=== PATIENT | male | born 1965 | race Caucasian/White ===

== ENCOUNTER 2017-09-27 17:34 | Inpatient (IN) | payer MEDICARE, MEDICAID ==
[~2017-09-27] VITALS: Ht 182.8 cm; Wt 69.5 kg
--- NOTE | ~2017-09-27 | PR ---
[place], [place] PROGRESS NOTE NAME: [id number] UNIT #: [id number] ROOM: 407 DOCTOR: ESEQUIEL PINEDA MD,CHUCKIE BIRTHDATE: [birth year] DOS: 09/30/2017 SUBJECTIVE: He has been ambulating at this time, reduction in respiratory symptoms of cough, wheezing, shortness of breath, all noted. Plan for discharge home today by the primary care attending. OBJECTIVE: VITAL SIGNS: This morning, patient noted a normal temperature, respiratory rate 20, heart rate of 92, blood pressure 117/68. Pulse oxygen saturation was noted as 97% on room air at rest. HEENT: Examination shows no acute change. NECK: Supple. CARDIOVASCULAR: S1, S2 audible. LUNGS: Without any crackles. Occasional wheezing. ABDOMEN: Flat, soft, nontender, without any acute edema. IMPRESSION: Progressive resolution of acute exacerbation of chronic obstructive pulmonary disease with acute tracheobronchitis was noted with current medical management, plan acute chronic nicotine dependence. Chronic moderate to severe hearing loss. PLAN OF TREATMENT: Continue patient's current therapy, plan of management. The patient at this time without any changes. The patient does get discharged, he could be started on the antibiotics, bronchodilators. Absolute tobacco use was encouraged. Tapering dose of prednisone will be also needed. Outpatient follow up in 2 weeks, was suggested. CHUCKIE IRAHETA MD CM:PNTRANS [id number] CHUCKIE PINEDA MD 09/30/17 1423 interface
--- NOTE | ~2017-09-27 | CON ---
[place], [place] REPORT OF CONSULTATION NAME: [facility]AS [facility] #: [id number] UNIT #: [id number] ROOM: 407 DOCTOR: ESEQUIEL PINEDA MDCHUCKIE BIRTHDATE: [birth year] DOS: 09/29/2017 PULMONARY CONSULTATION, EVALUATION, AND MANAGEMENT CONSULTATION REQUESTED BY: Hospitalist service. REASON FOR CONSULTATION: For assessment of symptoms of shortness of breath. HISTORY OF PRESENT ILLNESS: A 52-year-old white male patient who has been admitted to the hospital. The patient developed retrosternal chest pain ongoing for the past couple of weeks or more. The pain was described to be radiating into the left arm. The patient was also noted symptoms of increased shortness of breath with coughing, chest congestion, and wheezing intermittently along with the current symptoms. Denies symptoms of hemoptysis. The patient has been currently assessed for the cardiac problem because of current chest pain and also assessed for exacerbation of COPD. REVIEW OF SYSTEMS: CONSTITUTIONAL SYMPTOMS: Complain of fatigue without any fever or chills, changes in appetite or any abnormal weight loss. EYES: Denies burning, redness, or tenderness. EARS, NOSE, AND THROAT SYMPTOMS: No sore throat, hoarseness, otalgia, or postnasal drainage. CARDIOVASCULAR SYSTEM: Current atypical angina pain was reported by the patient. The patient was also complaining of some symptoms of dizziness and palpitations. Denies edema or pain of the lower extremities at rest or walking. GASTROINTESTINAL SYMPTOMS: Denies symptoms of dysphagia, nausea, vomiting, diarrhea, abdominal pain, hematemesis, melena, or hematochezia. SKIN: Denies lesions or rashes. GENITOURINARY: Denies dysuria, suprapubic pain, or hematuria. CENTRAL NERVOUS SYSTEM: There were no symptoms of tingling sensations. Remaining systems were reviewed with the patient. They were noted all negative. PAST MEDICAL HISTORY: 1. The patient was known with history of COPD/centrilobular emphysema. 2. Uncomplicated severe persistent bronchial asthma. 3. Chronic deafness, congenital with hearing loss. 4. Essential hypertension. 5. History of alcohol abuse as dependent. 6. Chronic nicotine dependence. 7. Hyperlipidemia. SOCIAL HISTORY: The patient is , does not have any children. He does drink several beers a day intermittently. Tobacco use was noted from the age of [id number] up to 2 packs of cigarettes per day, actively use at this time. Denies any history of illicit drug use. PAST SURGICAL HISTORY: Essentially noted as none. FAMILY HISTORY: The patient's father at [id number] from complication of [place], [place] REPORT OF CONSULTATION NAME: ASHLEY COREAS UNIT #: [id number] ROOM: 407 DOCTOR: CHUCKIE CASTANO MD BIRTHDATE: [birth year] myocardial infarction. Mother at 65-[id number]-tzu in a car accident. MEDICATIONS: Current medications administered noted use of IV Solu-Medrol 40 mg b.i.d., vitamin D, metoprolol tartrate, nicotine replacement patches, Lovenox for DVT prophylaxis, Protonix, DuoNeb q.6 hours, hydroxyzine, Robaxin, IV Levaquin, Librium, and other p.r.n. medications. DRUG ALLERGIES: The patient noted no known allergies. PHYSICAL EXAMINATION: GENERAL: A 52-year-old white male, currently noted awake and alert without any distress. Height of 6 feet, weight 153 pounds, BMI 20.7. VITAL SIGNS: Normal temperature since admission, respiratory rate range between 16 and 20, heart rate 122-85, blood pressure 144/80-150/90, and pulse oxygen saturation on room air was 100% saturation. HEENT: Examination shows head was atraumatic. Eyes nonicterus. NECK: Supple. Chronic partial hearing loss. CARDIOVASCULAR: S1, S2 audible without any added sounds. LUNGS: Examination of the lungs noted general reduction in the breath sounds in the lungs were noted bilaterally with mild expiratory wheezing bilaterally. ABDOMEN: Flat, soft, and nontender. EXTREMITIES: Without edema, clubbing or cyanosis. CENTRAL NERVOUS SYSTEM: Without any gross focal neurologic deficits. VISIBLE SKIN: No lesions or rashes. MUSCULOSKELETAL: Without any obvious deformities. LABORATORY DATA: The PT and PTT of the patient on 09/27/2017 normal on admission. CMP of the patient on 09/27/2017 was noted AST of 39, otherwise normal CMP. Ethyl alcohol level of the patient on admission noted 56. Troponin for the patient 3 sets on 09/27/2017 and 09/28/2017 were all normal. CBC of the patient of 09/28/2017, WBC count 11, hemoglobin 13, hematocrit 40.1, and platelet count normal. The CBC of this morning, WBC count 14.4, hemoglobin 13.9, hematocrit 41.9, and platelet count normal. CMP of this morning, normal BUN and creatinine. Remaining LFTs were normal. The stress test was completed yesterday for the patient assessed by the Cardiology Services with nuclear medicine component was reported as normal left ventricular ejection fraction was noted and no perfusion abnormalities. The test would be considered as normal. RADIOLOGY DATA: Review of the radiology data, chest x-ray of the patient was done one view on 09/27/2017 noted without any acute abnormalities. CTA of the chest was also done on 09/27/2017, no pulmonary embolism. Small area of right middle lobe atelectasis was noted as well. The larger cyst noted in the right upper lobe as well as a small cystic area was noted in the right lower lobe as couple of them. IMPRESSION: 1. The patient has been currently admitted to the hospital noted with acute exacerbation of chronic obstructive pulmonary disease, history of chronic nicotine dependence, smoking up to 2 packs of cigarettes a day. 2. Chronic alcohol dependence, use of the alcohol in the form of beer everyday [place], [place] REPORT OF CONSULTATION NAME: ASHLEY COREAS UNIT #: [id number] ROOM: 407 DOCTOR: CHUCKIE CASTANO MD BIRTHDATE: [birth year] as well. 3. Atypical chest pain for the patient with a normal stress testing as well. 4. Small area of infiltration or subsegmental atelectasis in right middle lobe at this time will be related to the mucus impaction or other reasons. PLAN OF MANAGEMENT: Continue bronchodilators, oxygen supplementation, current dose of corticosteroids, and other treatments. Abstinence of tobacco use recommended. Bronchoscopy could be done in an outpatient depending on further progression of the illness. Usual care. CHUCKIE IRAHETA MD CM:CONSTR:REPORT OF CONSULTATION 1249 09/30/17 0143 interface
[2017-09-27 17:34] VITALS: BP 167/101
[~2017-09-27 17:34] MED LIST: ALBUTEROL0.09 MG/Ac INH; ALTERA NEBULIZ1 EACH MC; ATORVASTATIN CA20 M1 PO; AVPAK AZITHROM250 MG PO; CLARITIN10 MG PO; FLONASE ALLERG9.9 ML NAS; LOPRESSOR25 MG PO; Lopressor25 MG PO; PRAVASTATIN SOD10 MG PO; PREDNICOT20 MG PO; PREDNISONE10 MG PO; PREDNISONE20 M1 PO; PROAIR HFA8.5 GM INH; ROBITUSSIN AC 110 ML PO; SEREVENT D0.046 MG/A IH; SUPER B-50 COM1 EAC1 PO; SYMBICORT1 AE1 INH; TESSALON PERLE100 M1 PO; TUDORZA PRESS400 MCG IH; VITAMIN D1000 IU PO; ZITHROMAX Z PA250 MG PO; ZITHROMAX250 MG PO
[2017-09-27 17:52] LABS: HEMATOCRIT 44.3 % (42.0-52.0); HEMOGLOBIN 14.8 g/dl (14.0-18.0); MEAN CELL VOLUME 92.9 fl (80.0-94.0); MEAN CORPUSCULAR HGB CONC 33.4 g/dl (33.0-37.0); MEAN PLATELET VOLUME 11.2 fl (9.6-12.3); PLATELET COUNT AUTOMATED 144 10*3/uL (130-400); RED BLOOD COUNT 4.77 10*6/uL (4.50-5.90); RED CELL DISTRI WIDTH 13.2 % (0-14.5); WHITE BLOOD COUNT 12.2 10*3/uL (4.8-10.8)
[2017-09-27 18:02] LABS: ACT PARTIAL THROMBO TIME 26.7 SECONDS (20.8-31.5); INTERNATIONAL NORM RATIO 0.9 (2.0-3.5)
[2017-09-27 18:11] LABS: ALBUMIN 3.9 gm/dl (3.1-4.5); ALKALINE PHOSPHATASE 80 U/L (45-117); BUN 5 mg/dl (7-24); CHLORIDE 102 mmol/L (98-107); CREATININE 0.83 mg/dL (0.70-1.30); SGOT/AST 39 IU/L (3-35); SGPT/ALT 45 U/L (12-78); SODIUM 137 mmol/L (136-145); TOTAL PROTEIN 7.2 gm/dL (6.4-8.2)
[2017-09-27 18:12] LABS: TROPONIN I < 0.015 ng/ml (<0.045)
[2017-09-27 18:15] LABS: BASOPHILS 1 % (0-1); TOTAL CELLS COUNTED 100 #CELLS
[2017-09-27 18:16] VITALS: BP 145/99
[2017-09-27 18:16] LABS: PLATELET SUFFICIENCY NORMAL (NORMAL)
[2017-09-27 19:21] VITALS: BP 139/94
[2017-09-27 20:05] VITALS: BP 143/100
[2017-09-27 20:22] VITALS: BP 142/85; BP 150/90
[2017-09-28 00:05] VITALS: BP 142/85
[2017-09-28 00:12] VITALS: BP 142/85
[2017-09-28 05:59] LABS: ALBUMIN 3.2 gm/dl (3.1-4.5); ALKALINE PHOSPHATASE 68 U/L (45-117); BUN 9 mg/dl (7-24); CHLORIDE 108 mmol/L (98-107); CHOLESTEROL 124 mg/dL (<200); CREATININE 0.82 mg/dL (0.70-1.30); HDL CHOLESTEROL 64 mg/dl (40-60); LDL CHOLESTEROL 49 mg/dL (9-159); POTASSIUM 4.3 mmol/L (3.5-5.1); SGOT/AST 29 IU/L (3-35); SGPT/ALT 33 U/L (12-78); SODIUM 142 mmol/L (136-145); TOTAL PROTEIN 5.8 gm/dL (6.4-8.2); TRIGLYCERIDES 55 mg/dl (<150); VLDL CHOLESTEROL 11 mg/dL (6-40)
[2017-09-28 06:49] LABS: HEMATOCRIT 40.1 % (42.0-52.0); MEAN CORPUSCULAR HGB 31.3 pg (27.0-31.0); MEAN CORPUSCULAR HGB CONC 32.4 g/dl (33.0-37.0); MEAN PLATELET VOLUME 12.5 fl (9.6-12.3); PLATELET COUNT AUTOMATED 127 10*3/uL (130-400); RED BLOOD COUNT 4.16 10*6/uL (4.50-5.90); RED CELL DISTRI WIDTH 13.2 % (0-14.5)
[2017-09-28 07:00] LABS: MEAN CELL VOLUME 96.4 fl (80.0-94.0)
[2017-09-28 07:39] LABS: ATYPICAL LYMPHS 2 % (0-0); PLATELET SUFFICIENCY NORMAL (NORMAL); TOTAL CELLS COUNTED 100 #CELLS
[2017-09-28 08:00] VITALS: BP 152/82
[2017-09-28 08:00] LABS: VITAMIN D, 25-HYDROXY 28.3 ng/mL (30-100)
[2017-09-28 12:00] VITALS: BP 142/94
[2017-09-28 16:00] VITALS: BP 136/85
[2017-09-28 20:00] VITALS: BP 155/55
[2017-09-29] VITALS: BP 147/92
[2017-09-29 06:41] LABS: HEMATOCRIT 41.9 % (42.0-52.0); HEMOGLOBIN 13.9 g/dl (14.0-18.0); MEAN CELL VOLUME 93.9 fl (80.0-94.0); MEAN CORPUSCULAR HGB 31.2 pg (27.0-31.0); MEAN CORPUSCULAR HGB CONC 33.2 g/dl (33.0-37.0); MEAN PLATELET VOLUME 12.4 fl (9.6-12.3); PLATELET COUNT AUTOMATED 141 10*3/uL (130-400); RED BLOOD COUNT 4.46 10*6/uL (4.50-5.90); WHITE BLOOD COUNT 14.4 10*3/uL (4.8-10.8)
[2017-09-29 06:59] LABS: ALBUMIN 3.8 gm/dl (3.1-4.5); ALKALINE PHOSPHATASE 91 U/L (45-117); BUN 9 mg/dl (7-24); CHLORIDE 108 mmol/L (98-107); CREATININE 0.67 mg/dL (0.70-1.30); POTASSIUM 4.2 mmol/L (3.5-5.1); SGOT/AST 22 IU/L (3-35); SGPT/ALT 40 U/L (12-78); SODIUM 141 mmol/L (136-145); TOTAL PROTEIN 7.1 gm/dL (6.4-8.2)
[2017-09-29 07:55] LABS: PLATELET SUFFICIENCY NORMAL (NORMAL); TOTAL CELLS COUNTED 100 #CELLS
[2017-09-29 08:00] VITALS: BP 120/90; BP 144/80
[2017-09-29 12:00] VITALS: BP 132/68
[2017-09-29 16:00] VITALS: BP 142/84
[2017-09-29 20:00] VITALS: BP 149/89
[2017-09-30 00:01] VITALS: BP 140/78
[2017-09-30 08:00] VITALS: BP 152/83
[2017-09-30 12:00] VITALS: BP 117/68
[2017-09-30] MEDS ORDERED: LEVAQUIN500 M2 PO (12:41)
[2017-09-30] MEDS ORDERED: PREDNISONE10 MG PO (12:41)
[2017-09-30] MEDS ORDERED: METOPROLOL25 MG PO (14:35)
== END 2017-09-30 15:00 | disposition home or self-care (01) | DRG 871 ==
LOC: ED 17:34 → 4E 18:45 → EDHOLD 18:45 → 4E 19:57
PROVIDERS: Emergency Medicine; Family Medicine Adult Medicine; Internal Medicine
PROC: 4A02XM4 Measurement of Cardiac Total Activity, External Approach (ICD-10-PCS; principal; 2017-09-28)
PROC: 3E033HZ Introduction of Radioactive Substance into Peripheral Vein, Percutaneous Approach (ICD-10-PCS; principal; 2017-09-28)
DX: A41.9 Sepsis, unspecified organism (principal); J18.9 Pneumonia, unspecified organism; I21.9 Acute myocardial infarction, unspecified; J44.0 Chronic obstructive pulmonary disease with (acute) lower respiratory infection; F10.230 Alcohol dependence with withdrawal, uncomplicated; J44.1 Chronic obstructive pulmonary disease with (acute) exacerbation; F11.20 Opioid dependence, uncomplicated; J98.11 Atelectasis; R65.20 Severe sepsis without septic shock; K21.9 Gastro-esophageal reflux disease without esophagitis; M94.0 Chondrocostal junction syndrome [Tietze]; K08.409 Partial loss of teeth, unspecified cause, unspecified class; R00.0 Tachycardia, unspecified; R74.0 Nonspecific elevation of levels of transaminase and lactic acid dehydrogenase [LDH]; J20.9 Acute bronchitis, unspecified; H91.90 Unspecified hearing loss, unspecified ear; F10.229 Alcohol dependence with intoxication, unspecified; F41.9 Anxiety disorder, unspecified; E78.5 Hyperlipidemia, unspecified; I10 Essential (primary) hypertension; Z72.0 Tobacco use; Z71.6 Tobacco abuse counseling; Z82.49 Family history of ischemic heart disease and other diseases of the circulatory system; Z79.899 Other long term (current) drug therapy; Z79.82 Long term (current) use of aspirin

== ENCOUNTER 2017-10-06 19:48 | Inpatient (IN) | payer MEDICARE, MEDICAID ==
[~2017-10-06] VITALS: Ht 185.4 cm; Wt 68.7 kg
--- NOTE | ~2017-10-06 | PR ---
[place], [place] PROGRESS NOTE NAME: ASHLEY COREAS UNIT #: [id number] ROOM: 427 DOCTOR: CHUCKIE CASTANO MD BIRTHDATE: [birth year] DOS: 10/10/2017 SUBJECTIVE: The patient has a bronchoscopy completed yesterday. The patient with reduction of the respiratory symptom noticed, still noted the coughing and wheezing, which has been noted partially reduced. He has not been noted any symptoms of chest pain. The patient noted chronic hard of hearing. Denies abdominal pain. OBJECTIVE: VITAL SIGNS: For the patient which has been recorded showed normal temperature, respiratory rate 20, heart rate of 112-97, blood pressure 153/94-139/82. HEENT: Showed no acute change. NECK: Supple. CARDIOVASCULAR: S1, S2 is audible. LUNGS: Noted without any crackles. Moderate expiratory wheezing was present and noted partially decreased from previously. ABDOMEN: Soft, nontender. Bowel sounds present. EXTREMITIES: The patient noted without any acute edema. LABORATORY DATA: Cultures of the bronchial washing preliminary was noted as normal archana. Final culture results are pending. The Gram stain with few white blood cells with epithelial cells and complex cocci in pairs. CBC this morning: WBC count 15.3. BMP: Glucose mildly elevated as 137, otherwise normal. Remaining BMP normal. IMPRESSION: The patient with ongoing acute severe exacerbation of chronic obstructive pulmonary disease with acute bronchitis, influenza infection, status post bronchoscopy, removal of multiple plugs of the mucus from the major airways. PLAN OF THERAPY: No changes in the plan of treatment at this time will be necessary. Continue current dose of steroids, bronchodilators and other treatment as previously in progress. [place], [place] PROGRESS NOTE NAME: ASHLEY COREAS UNIT #: [id number] ROOM: 427 DOCTOR: CHUCKIE CASTANO MD BIRTHDATE: [birth year] CHUCKIE IRAHETA MD CM:PNTRANS [id number] CHUCKIE PINEDA MD 10/10/17 2314 interface
--- NOTE | ~2017-10-06 | PR ---
[place], [place] PROGRESS NOTE [id number] UNIT #: [id number] ROOM: 427 DOCTOR: ESEQUIEL PINEDA MD,CHUCKIE BIRTHDATE: [birth year] DOS: 10/12/2017 SUBJECTIVE: The patient has been noted with continued reduction and improvement in the respiratory symptoms, gradual reduction of cough, wheezing and shortness of breath. He was continuing Solu-Medrol 40 mg q.8h. Continue antibiotics and bronchodilator treatments. OBJECTIVE: VITAL SIGNS: For the patient which has been recorded showed normal temperature, respiratory rate 18, heart rate 98, blood pressure 137/93. Pulse oxygen saturation of the patient was noted as 97% saturation. HEENT: Examination shows head was atraumatic. Eyes nonicterus. NECK: Supple. CARDIOVASCULAR: S1, S2 is audible. LUNGS: The patient was noted with mild to moderate expiratory wheezing, which was decreasing gradually every day. There were no crackles. ABDOMEN: Soft, nontender. IMPRESSION: 1. The patient with gradual and progressive resolution of the wheezing noted with acute exacerbation of chronic obstructive pulmonary disease and acute influenza infection as well. 2. History of chronic nicotine dependence. PLAN OF MANAGEMENT: Reduce the Solu-Medrol dose 40 mg b.i.d. for the next 24 hours. Possible consideration for home discharge in the morning could be considered on tapering prednisone. Continuation of the plan of management as previously in progress. Usual care. Supportive therapy, plan of management and care. CHUCKIE IRAHETA MD CM:PNTRANS [id number] CHUCKIE PINEDA MD 10/13/17 0422 interface
--- NOTE | ~2017-10-06 | PR ---
[place], [place] PROGRESS NOTE NAME: ASHLEY COREAS [facility] #: [id number] UNIT #: [id number] ROOM: 427 DOCTOR: ESEQUIEL PINEDA MD,CHUCKIE BIRTHDATE: [birth year] DOS: 10/15/2017 SUBJECTIVE: The patient has been noted comfortable at this time without any acute distress, comfortably resting in the bed. Coughing, wheezing other symptoms have been improving. The patient will continue doxycycline. LABORATORY DATA: CT of the chest was done to assess for any occult pneumonia for this patient, does not show evidence of pulmonary embolism. The patient was noted with emphysema bullous in the lungs for this patient with increased previous bullous lesion was noted. There was no acute infiltration noted, abnormal pulmonary nodules. IMPRESSION: 1. 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 The patient was noted with resolving acute exacerbation of chronic obstructive pulmonary disease, acute tracheobronchitis, lymphocyte predominant leukocytosis, rule out any hematologic malignancy. PLAN OF MANAGEMENT: Use of the antibiotic. The patient on doxycycline upon discharge, tapering dose of prednisone. Outpatient assessment would be advised with the hematology service to rule out any lymphocytic pneumonia. Assessment and management has been discussed with the patient and discharge planning with Dr. Marti. The patient was advised to use the home oxygen supplementation as he already has home oxygen. CHUCKIE IRAHETA MD CM:PNTRANS [phone] CHUCKIE PINEDA MD 10/16/17 0042 interface
--- NOTE | ~2017-10-06 | PR ---
[place], [place] PROGRESS NOTE [id number] UNIT #: [id number] ROOM: 427 DOCTOR: ESEQUIEL PINEDA MD,CHUCKIE BIRTHDATE: [birth year] DOS: 10/14/2017 SUBJECTIVE: He has been noted comfortable at this time without any acute distress, sitting on side of the bed. Denies symptoms of chest pain, coughing, wheezing, shortness of breath, all gradually improving. OBJECTIVE: VITAL SIGNS: Normal temperature, respiratory rate 20, heart rate of 120, blood pressure 150/89. The pulse oxygen saturation on 2 liters 93% saturation. HEENT: Examination shows head was atraumatic. Eyes: No icterus. NECK: Supple. CARDIOVASCULAR: S1, S2 audible. LUNGS: Without any crackles. Occasional wheezing. ABDOMEN: Soft, nontender. LABORATORY DATA: Sinus tachycardia. The patient noted chronic leukocytosis noted WBC count 29,000 for the patient with 52% lymphocytes. IMPRESSION: 1. Resolving acute exacerbation of chronic obstructive pulmonary disease, acute tracheobronchitis, leukocytosis, lymphocytosis, rule out any hematologic abnormalities for this patient as well. PLAN OF MANAGEMENT: After discharge, he need to be followed up by the Hematology service for assessment of the CBC for the patient remains abnormal. Tobacco cessation was addressed with the patient. CHUCKIE IRAHETA MD CM:PNTRANS [id number] CHUCKIE PINEDA MD 10/14/17 1237 interface
--- NOTE | ~2017-10-06 | PROC NOTE ---
[place], [place] PROCEDURE NOTE [id number] UN[facility] #: [id number] ROOM: 427 DOCTOR: ESEQUIEL PINEDA MD,CHUCKIE BIRTHDATE: [birth year] DOS: 10/09/2017 BRONCHOSCOPY NOTE PREOPERATIVE DIAGNOSES: Persistent severe coughing and wheezing. The patient with maximal medical therapy. POSTOPERATIVE DIAGNOSES: Removal of multiple plugs and mucus in the endobronchial tree bilaterally. There were no endobronchial obstructive lesions. PROCEDURE DESCRIPTION: Informed consent obtained for the patient. The patient was brought to the OR and placed in supine physician. Conscious sedation administered by the Anesthesia Department. After achieving appropriate sedation, airway introduced into the mouth. Bronchoscope advanced to the airway into laryngeal area. Epiglottis and vocal cords seen. Vocal cords were moving symmetrically with movements, noted yellowish in color. Bronchoscope advanced to the vocal cords into tracheal lumen. The tracheal lumen of the patient noted with moderate amount of thick mucus secretion with some purulent secretion mixture suctioned at renae level. The right upper, right middle, right lower, left upper, left lingular lower lobe bronchi, were all examined. Pimxsigf-nm-fslvn amount of thick plugs and mucus was present in almost all of the subsegments, which were cleared up with normal saline wash, sent for culture. Procedure well tolerated by the patient without complication. Postoperative findings would be discussed with the patient once the patient recovers the effects of acute sedation. No immediate change in the treatment at this time will be needed. CHUCKIE IRAHETA MD CM:PROCNOTE:PROCEDURE NOTE [id number] CHUCKIE PINEDA MD
--- NOTE | ~2017-10-06 | PR ---
[place], [place] PROGRESS NOTE NAME: ASHLEY COREAS [facility] #: [id number] UNIT #: [id number] ROOM: 427 DOCTOR: ESEQUIEL PINEDA MD,CHUCKIE BIRTHDATE: [birth year] DOS: 10/09/2017 SUBJECTIVE: The patient has been planned for bronchoscopy to be done today, noted awake and alert. The coughing was still noted moderate to severe without any sputum expectoration. Partial reduction of symptoms of shortness of breath described. The patient denies symptoms of headache or earache. Denies symptoms of diplopia. General weakness, fatigue were reported. Denies symptoms of nausea, vomiting, and diarrhea. Denies any dysuria, suprapubic pain, hematuria, or flank pain. Denies any edema or pain of the lower extremities. The patient was started on the p.r.n. medications for the cough. Partial reduction of the cough symptomatically noted. OBJECTIVE: VITAL SIGNS: Temperature noted as normal, respiratory rate 20-21, heart rate of 100-112, blood pressure 120/85-130/78. Intake 1500 mL, output 500 mL without Sweeney catheter recorded. Pulse ox saturation on 3 liters nasal cannula 95% saturation. HEENT: Examination shows severe hearing loss, which is noted chronic. Head was atraumatic. NECK: Supple. CARDIOVASCULAR: S1, S2 audible. LUNGS: Noted with moderate decreased breath sounds, expiratory wheezing was noted without any crackles. ABDOMEN: Soft, nontender. Bowel sounds present. EXTREMITIES: Without any acute edema. SKIN: Visible skin, no lesions or rashes. MUSCULOSKELETAL: Without any acute deformities. LABORATORY DATA: BMP today, glucose 139, remaining BMP normal. CBC: WBC count 13.6, hemoglobin 12.1, hematocrit 37.7, platelet count of 148,000 with 50% lymphocytes. IMPRESSION: 1. Persistent lymphocytosis noted mildly with ongoing acute exacerbation of chronic obstructive pulmonary disease, acute tracheobronchitis, history of nicotine dependence as well. 2. Chronic congenital partial hearing loss. 3. The patient with acute influenza B infection. PLAN OF MANAGEMENT: Proceed with bronchoscopy as planned for the patient. No immediate change in treatment will be necessary. Any modification of treatment if necessary will be done after bronchoscopy. Continuation of bronchodilator at same frequency. Continuation of current antibiotics and Solu-Medrol at the same doses as well. Supportive plan of management and therapy. Continuation of treatment of the patient's acute influenza B infection as well. [place], [place] PROGRESS NOTE NAME: ASHLEY COREAS [place] UNIT #: [id number] ROOM: [facility] DOCTOR: CHUCKIE CASTANO MD BIRTHDATE: [birth year] CHUCKIE IRAHETA MD CM:PNTRANS [phone] CHUCKIE PINEDA MD 10/09/17 2253 interface
--- NOTE | ~2017-10-06 | PR ---
[place], [place] PROGRESS NOTE NAME: ASHLEY COREAS UNIT #: [id number] ROOM: 427 DOCTOR: CHUCKIE CASTANO MD BIRTHDATE: [birth year] DOS: 10/11/2017 PULMONARY PROGRESS NOTE SUBJECTIVE: The patient was noted with gradual reduction of the respiratory symptom and reduction of cough, wheezing, and shortness of breath was continued. Denies symptoms of chest pain. He reported some tightness in chest this morning, relieved after the use of the bronchodilators with the nebulizer. OBJECTIVE: VITAL SIGNS: Normal temperature, respiratory rate was recorded as 18, heart rate 118-120, and blood pressure 181/98-135/78 recorded. The pulse oxygen saturation on 2 liters nasal cannula 98% saturation. HEENT: Examination shows no acute change. Head was atraumatic. NECK: Supple. CARDIOVASCULAR: S1, S2 is audible. LUNGS: The patient was noted without any crackles. Juqu-vj-kemrsrxv expiratory wheezing. ABDOMEN: Soft. Nontender. EXTREMITIES: Without any edema. LABORATORY DATA: Culture of the bronchial washing shows a normal archana. CBC: WBC count 18,000. Platelet count was normal. IMPRESSION: 1. The patient has been noted with acute exacerbation of chronic obstructive pulmonary disease with gradual improvement was continued. 2. Wheezing was improving. 3. Leukocytosis. Combination of steroids. 4. Tachycardia. 5. Uncontrolled hypertension, which has been already managed by the primary care physician. PLAN OF MANAGEMENT: No changes in the plan of therapy at this time. Continuation of current plan for the patient as previously. Usual care, other supportive, and plan of management as in progress. Gradual reduction of the corticosteroids. [place], [place] PROGRESS NOTE NAME: ASHLEY COREAS UNIT #: [id number] ROOM: 427 DOCTOR: CHUCKIE CASTANO MD BIRTHDATE: [birth year] CHUCKIE IRAHETA MD CM:PNTRANS [phone] CHUCKIE PINEDA MD 10/12/17 0240 interface
--- NOTE | ~2017-10-06 | CON ---
[place], [place] REPORT OF CONSULTATION NAME: ASHLEY COREAS [facility] #: [id number] UNIT #: [id number] ROOM: 427 DOCTOR: ESEQUIEL PINEDA MDCHUCKIE BIRTHDATE: [birth year] DOS: 10/08/2017 CONSULTATION REQUESTED BY: Hospitalist services. REASON FOR CONSULTATION: Acute exacerbation of COPD assessment. HISTORY OF PRESENT ILLNESS: A 52-year-old white male who has been recently admitted to the hospital treated for acute exacerbation of COPD with improvement in the respiratory status noted, discharged home the patient on 09/30/2017. The patient has been taking tapering dose of prednisone and antibiotics. He came back to the Emergency Room as the patient complaining of increased shortness of breath. The cough has been noted significantly worsened with some sputum expectoration intermittently. He stated that he is not able to expectorate sputum completely with the cough. The coughing has been noted worsening. He was also complaining of tightness in the chest with nonspecific pain in the chest bilaterally. The symptoms of the patient noted improving from previous home medications. The patient has been currently admitted to the hospital for further medical management. At the present time, he has been noted with recurrence of the acute exacerbation of chronic obstructive pulmonary disease as well. The patient was also noted influenza B infection, which has been noted positive for the patient during this admission. REVIEW OF SYSTEMS: CONSTITUTIONAL: Fatigue and tiredness, the patient reported without any symptoms of fever or chills. EYES: Denies any burning, redness, or tenderness. EARS, NOSE AND THROAT SYMPTOMS. No sore throat, hoarseness, otalgia, postnasal drainage or epistaxis. He has been noted chronic hearing loss as well. CARDIOVASCULAR SYSTEM: The patient was noted nonspecific pain, which are described in the chest. Denies any edema or pain of the lower extremities. Denies symptoms of anginal pain. GASTROINTESTINAL: Denies dysphagia, nausea, vomiting, diarrhea, abdominal pain, hematemesis, melena, or hematochezia. Denies any dysphagia. Denies abnormal weight loss history. GENITOURINARY SYMPTOMS: No dysuria, suprapubic pain, hematuria, or urinary retention or incontinence. MUSCULOSKELETAL SYMPTOM: Denies acute joint pain, redness, or tenderness. SKIN: Denies lesions, rashes or ulcers. CENTRAL NERVOUS SYSTEM: No dizziness, headache, diplopia, syncopal episodes. Remaining systems were reviewed of the patient, they were noted all negative. PAST MEDICAL HISTORY, SURGICAL HISTORY, SOCIAL HISTORY, FAMILY HISTORY AND THE PREVIOUS HOME MEDICATION: All reviewed for this patient from consultation of 09/29/2017 and they remains all unchanged. Please refer to that consultation for any reference, which is available in the medical records in the [employer] system. MEDICATIONS: The current medication, which has been administered to the patient was noted use of multivitamin, hydroxyzine, loratadine, vitamin D, metoprolol [place], [place] REPORT OF CONSULTATION NAME: ASHLEY COREAS UNIT #: [id number] ROOM: 427 DOCTOR: CHUCKIE CASTANO MD BIRTHDATE: [birth year] tartrate, nicotine replacement patches, enoxaparin, IV Solu-Medrol 40 mg q.8h., DuoNeb, Dulera, vancomycin, Zosyn and Levaquin. DRUG ALLERGIES: No known drug allergies. PHYSICAL EXAMINATION: GENERAL: A 52-year-old white male patient noted excessive cough without any sputum expectoration without any acute major distress. The patient's height recorded as 6 feet 1 inch, weight of 151 pounds. VITAL SIGNS: For this patient which has been recorded shows temperature was noted as normal, respiratory rate 18-22, heart rate of 98-117 with intermittent sinus tachycardia, blood pressure 135/68 to 147/88. Pulse oxygen saturation of the patient recorded on room air 96 percent saturation on 3 liters cannula was 98% saturation. Intake 2800 mL, output 3800 mL recorded in the last 24 hours. HEENT: Examination shows head was atraumatic. Eyes nonicterus. NECK: Supple. Oral mucosa moist. Chronic hearing loss for the patient noted moderate to severe. CARDIOVASCULAR SYSTEM: S1, S2 is audible. LUNGS: The patient was noted with general reduction of breath sounds in the lungs were noted bilaterally. Expiratory wheezing. ABDOMEN: Soft, flat, nontender, bowel sounds present. EXTREMITIES: The patient was noted without any edema, clubbing, cyanosis. CENTRAL NERVOUS SYSTEM: Cranial nerves were noted intact except the patient's hearing loss. MUSCULOSKELETAL SYMPTOM: Does not show any acute deformities, lesions or rashes. Remaining systems were reviewed with the patient, they were noted all negative. LABORATORY DATA: Influenza A and B, nasal washing antigen noted positive, influenza B infection. CMP for the patient noted BUN 14, creatinine was 0.87. C-reactive protein minimally at 1.46. The WBC count of the patient was noted 15.6, hemoglobin 14.5, hematocrit 43.6, platelet count was normal for this patient, 46% lymphocytes on 10/06/2017. BMP of the patient of 10/07/2017 noted normal BUN and creatinine. CMP of the patient of 10/07/2017 essentially the same. The CBC for the patient that was done 10/08/2017 noted WBC count mildly elevated at 30.3, hemoglobin 12.8, hematocrit 39.1, platelet count 147,000. BMP of the patient noted normal BUN and creatinine, glucose 154. The chest x-ray of the patient, 2-view, which was done for this patient was noted without any evidence of acute pulmonary infiltration. IMPRESSION: 1. The patient who has been currently admitted to the hospital for influenza infection with acute exacerbation of chronic obstructive pulmonary disease, moderate severe cough, which is noted mostly nonproductive, unable to expectorate sputum, nonspecific chest pain related to current exacerbation of chronic obstructive pulmonary disease and acute chronic persistent nicotine dependence as well. 2. Chronic hearing loss of the patient remains stable. [place], [place] REPORT OF CONSULTATION NAME: ASHLEY COREAS UNIT #: [id number] ROOM: [facility] DOCTOR: ESEQUIEL PINEDA [facility] BIRTHDATE: [birth year] PLAN OF MANAGEMENT: Continue Solu-Medrol and bronchodilator. Discontinue all of the current broad-spectrum intravenous antibiotic started for this patient. Continuation of Tamiflu is the only antibiotic despite needed for viral infection. The patient was assessed for bronchoscopy will be done in the morning. The tachycardia, which has been noted with the patient is related to the current underlying exacerbation of COPD, not an uncommon finding. Lymphocytosis noted most likely related to the viral infection as well. Risk and benefits of procedure of the bronchoscopy were discussed with the patient and the patient was agreeable. Procedure will be done in the morning. He was ordered symptomatic management of cough with the use of Robitussin AC 5 mL q.6h. for the management of the cough. CHUCKIE IRAHETA MD CM:CONSTR:REPORT OF CONSULTATION [id number] 10/09/17 0241 interface
--- NOTE | ~2017-10-06 | PR ---
[place], [place] PROGRESS NOTE [id number] UNIT #: [id number] ROOM: 427 DOCTOR: ESEQUIEL PINEDA MD,CHUCKIE BIRTHDATE: [birth year] DOS: 10/13/2017 SUBJECTIVE: The patient has been noted comfortable at this time without any acute distress at this time, resting and sitting on the side of the bed. Coughing, wheezing and other symptoms have been gradually subsiding. OBJECTIVE: VITAL SIGNS: The patient showed normal temperature, respiratory rate 20, heart rate 125-110, blood pressure 143/90-144/81. Pulse oxygen saturation of the patient recorded on 2 liters nasal cannula 97% saturation. HEENT: Examination shows head was atraumatic. Eyes nonicterus. NECK: Supple. CARDIOVASCULAR: S1, S2 is audible. LUNGS: The patient was noted without any crackles, mild expiratory wheezing. ABDOMEN: Soft, nontender. EXTREMITIES: Without any acute edema. IMPRESSION: 1. The patient with a slow and gradual resolution of the acute exacerbation of chronic obstructive pulmonary disease was noted. 2. Leukocytosis was noted for this patient as well with WBC count of 25. BMP was noted with normal BUN and creatinine. Leukocytosis most likely induced by the corticosteroids. There was no evidence of new acute infection at this time known. The culture previously of the bronchial washing noted negative. 3. Tachycardia. PLAN OF MANAGEMENT: Monitor respiratory status of the patient closely. Continuation of bronchodilators, oxygen supplementation and corticosteroids at current dose of 40 mg b.i.d. Other supportive therapy, plan of management and care plan. CHUCKIE IRAHETA MD CM:PNTRANS [id number] CHUCKIE PINEDA MD 10/14/17 0034 interface
[~2017-10-06 19:48] MED LIST changes: +LEVAQUIN500 M2 PO; +METOPROLOL25 MG PO
[2017-10-06 20:13] VITALS: BP 136/89
[2017-10-06 20:51] LABS: HEMATOCRIT 43.6 % (42.0-52.0); HEMOGLOBIN 14.5 g/dl (14.0-18.0); MEAN CELL VOLUME 94.4 fl (80.0-94.0); MEAN CORPUSCULAR HGB 31.4 pg (27.0-31.0); MEAN CORPUSCULAR HGB CONC 33.3 g/dl (33.0-37.0); MEAN PLATELET VOLUME 11.1 fl (9.6-12.3); PLATELET COUNT AUTOMATED 157 10*3/uL (130-400); RED BLOOD COUNT 4.62 10*6/uL (4.50-5.90); RED CELL DISTRI WIDTH 13.4 % (0-14.5); WHITE BLOOD COUNT 15.6 10*3/uL (4.8-10.8)
[2017-10-06 21:06] LABS: ACT PARTIAL THROMBO TIME 24.5 SECONDS (20.8-31.5); INTERNATIONAL NORM RATIO 0.9 (2.0-3.5)
[2017-10-06 21:08] LABS: ALBUMIN 3.9 gm/dl (3.1-4.5); ALKALINE PHOSPHATASE 71 U/L (45-117); BUN 14 mg/dl (7-24); CHLORIDE 107 mmol/L (98-107); CREATININE 0.87 mg/dL (0.70-1.30); LIPASE 285 U/L (73-393); POTASSIUM 3.7 mmol/L (3.5-5.1); SGOT/AST 19 IU/L (3-35); SGPT/ALT 28 U/L (12-78); SODIUM 140 mmol/L (136-145); TOTAL PROTEIN 6.9 gm/dL (6.4-8.2)
[2017-10-06 21:09] LABS: TROPONIN I < 0.015 ng/ml (<0.045)
[2017-10-06 21:16] LABS: ATYPICAL LYMPHS 3 % (0-0); PLATELET SUFFICIENCY NORMAL (NORMAL); TOTAL CELLS COUNTED 100 #CELLS
[2017-10-06 22:00] VITALS: BP 120/80
[2017-10-06 23:00] VITALS: BP 69/45
[2017-10-06 23:30] VITALS: BP 128/86
[2017-10-07] VITALS: BP 101/77; BP 139/95
[2017-10-07 03:39] LABS: HEMATOCRIT 40.4 % (42.0-52.0); MEAN CELL VOLUME 97.3 fl (80.0-94.0); MEAN CORPUSCULAR HGB 31.3 pg (27.0-31.0); MEAN CORPUSCULAR HGB CONC 32.2 g/dl (33.0-37.0); PLATELET COUNT AUTOMATED 122 10*3/uL (130-400); RED BLOOD COUNT 4.15 10*6/uL (4.50-5.90); RED CELL DISTRI WIDTH 13.6 % (0-14.5); WHITE BLOOD COUNT 10.7 10*3/uL (4.8-10.8)
[2017-10-07 03:50] LABS: BUN 13 mg/dl (7-24); CHLORIDE 108 mmol/L (98-107); CREATININE 0.85 mg/dL (0.70-1.30); PHOSPHOROUS 3.9 mg/dL (2.5-4.9); POTASSIUM 3.8 mmol/L (3.5-5.1); SODIUM 143 mmol/L (136-145)
[2017-10-07 04:12] LABS: ATYPICAL LYMPHS 3 % (0-0); TOTAL CELLS COUNTED 100 #CELLS
[2017-10-07 04:13] LABS: PLATELET SUFFICIENCY LOW (NORMAL)
[2017-10-07 08:33] VITALS: BP 129/85
[2017-10-07 12:09] VITALS: BP 125/82
[2017-10-07 16:00] VITALS: BP 134/93
[2017-10-07 20:00] VITALS: BP 135/68
[2017-10-08] VITALS: BP 142/88
[2017-10-08 06:52] LABS: HEMATOCRIT 39.1 % (42.0-52.0); HEMOGLOBIN 12.8 g/dl (14.0-18.0); MEAN CELL VOLUME 96.8 fl (80.0-94.0); MEAN CORPUSCULAR HGB 31.7 pg (27.0-31.0); MEAN CORPUSCULAR HGB CONC 32.7 g/dl (33.0-37.0); MEAN PLATELET VOLUME 11.6 fl (9.6-12.3); PLATELET COUNT AUTOMATED 147 10*3/uL (130-400); RED BLOOD COUNT 4.04 10*6/uL (4.50-5.90); RED CELL DISTRI WIDTH 13.2 % (0-14.5); WHITE BLOOD COUNT 13.3 10*3/uL (4.8-10.8)
[2017-10-08 07:18] LABS: PLATELET SUFFICIENCY NORMAL (NORMAL); TOTAL CELLS COUNTED 100 #CELLS
[2017-10-08 07:34] LABS: CHLORIDE 105 mmol/L (98-107); POTASSIUM 4.3 mmol/L (3.5-5.1); SODIUM 140 mmol/L (136-145)
[2017-10-08 07:59] LABS: BUN 12 mg/dl (7-24)
[2017-10-08 08:00] VITALS: BP 147/88
[2017-10-08 12:00] VITALS: BP 140/86
[2017-10-08 16:00] VITALS: BP 143/95
[2017-10-08 20:00] VITALS: BP 140/88
[2017-10-09] VITALS (8 sets, daily range): BP systolic 128–148; BP diastolic 78–98
[2017-10-09 06:56] LABS: HEMATOCRIT 37.7 % (42.0-52.0); HEMOGLOBIN 12.1 g/dl (14.0-18.0); MEAN CELL VOLUME 97.7 fl (80.0-94.0); MEAN CORPUSCULAR HGB 31.3 pg (27.0-31.0); MEAN CORPUSCULAR HGB CONC 32.1 g/dl (33.0-37.0); MEAN PLATELET VOLUME 11.5 fl (9.6-12.3); PLATELET COUNT AUTOMATED 148 10*3/uL (130-400); RED BLOOD COUNT 3.86 10*6/uL (4.50-5.90); RED CELL DISTRI WIDTH 13.4 % (0-14.5); WHITE BLOOD COUNT 13.6 10*3/uL (4.8-10.8)
[2017-10-09 07:13] LABS: BUN 10 mg/dl (7-24); CHLORIDE 105 mmol/L (98-107); CREATININE 0.71 mg/dL (0.70-1.30); POTASSIUM 4.2 mmol/L (3.5-5.1); SODIUM 140 mmol/L (136-145)
[2017-10-09 07:24] LABS: PLATELET SUFFICIENCY NORMAL (NORMAL); TOTAL CELLS COUNTED 100 #CELLS
[2017-10-10] VITALS: BP 139/82
[2017-10-10 07:56] LABS: HEMATOCRIT 40.7 % (42.0-52.0); HEMOGLOBIN 13.4 g/dl (14.0-18.0); MEAN CELL VOLUME 97.8 fl (80.0-94.0); MEAN CORPUSCULAR HGB 32.2 pg (27.0-31.0); MEAN CORPUSCULAR HGB CONC 32.9 g/dl (33.0-37.0); MEAN PLATELET VOLUME 11.4 fl (9.6-12.3); PLATELET COUNT AUTOMATED 158 10*3/uL (130-400); RED BLOOD COUNT 4.16 10*6/uL (4.50-5.90); RED CELL DISTRI WIDTH 13.4 % (0-14.5); WHITE BLOOD COUNT 15.3 10*3/uL (4.8-10.8)
[2017-10-10 08:00] VITALS: BP 153/94
[2017-10-10 08:10] LABS: BUN 11 mg/dl (7-24); CHLORIDE 104 mmol/L (98-107); POTASSIUM 4.2 mmol/L (3.5-5.1); SODIUM 140 mmol/L (136-145)
[2017-10-10 08:49] LABS: PLATELET SUFFICIENCY NORMAL (NORMAL); TOTAL CELLS COUNTED 100 #CELLS
[2017-10-10 15:06] LABS: ACID FAST SMEAR Negative (.); ACID FAST SPEC PROCESSING Concentration (.)
[2017-10-10 16:00] VITALS: BP 175/95
[2017-10-10 20:00] VITALS: BP 165/92
[2017-10-11] VITALS: BP 135/78
[2017-10-11 05:55] LABS: HEMATOCRIT 38.8 % (42.0-52.0); HEMOGLOBIN 12.4 g/dl (14.0-18.0); MEAN CELL VOLUME 97.5 fl (80.0-94.0); MEAN CORPUSCULAR HGB 31.2 pg (27.0-31.0); MEAN PLATELET VOLUME 11.2 fl (9.6-12.3); PLATELET COUNT AUTOMATED 163 10*3/uL (130-400); RED BLOOD COUNT 3.98 10*6/uL (4.50-5.90); RED CELL DISTRI WIDTH 13.2 % (0-14.5); WHITE BLOOD COUNT 18.1 10*3/uL (4.8-10.8)
[2017-10-11 06:26] LABS: BUN 15 mg/dl (7-24); CHLORIDE 106 mmol/L (98-107); CREATININE 0.75 mg/dL (0.70-1.30); POTASSIUM 4.3 mmol/L (3.5-5.1); SODIUM 142 mmol/L (136-145)
[2017-10-11 06:59] LABS: PLATELET SUFFICIENCY NORMAL (NORMAL); TOTAL CELLS COUNTED 100 #CELLS
[2017-10-11 08:00] VITALS: BP 181/98
[2017-10-11 16:00] VITALS: BP 158/87
[2017-10-11 20:05] VITALS: BP 142/94
[2017-10-12 00:20] VITALS: BP 158/98
[2017-10-12 07:40] LABS: HEMATOCRIT 39.8 % (42.0-52.0); MEAN CELL VOLUME 95.2 fl (80.0-94.0); MEAN CORPUSCULAR HGB 31.1 pg (27.0-31.0); MEAN CORPUSCULAR HGB CONC 32.7 g/dl (33.0-37.0); MEAN PLATELET VOLUME 11.4 fl (9.6-12.3); PLATELET COUNT AUTOMATED 208 10*3/uL (130-400); RED BLOOD COUNT 4.18 10*6/uL (4.50-5.90); RED CELL DISTRI WIDTH 13.3 % (0-14.5); WHITE BLOOD COUNT 24.3 10*3/uL (4.8-10.8)
[2017-10-12 08:00] VITALS: BP 137/93
[2017-10-12 08:01] LABS: BUN 15 mg/dl (7-24); CHLORIDE 104 mmol/L (98-107); CREATININE 0.71 mg/dL (0.70-1.30); SODIUM 140 mmol/L (136-145)
[2017-10-12 08:04] LABS: PLATELET SUFFICIENCY NORMAL (NORMAL); TOTAL CELLS COUNTED 100 #CELLS
[2017-10-12 12:00] VITALS: BP 142/98
[2017-10-12 16:00] VITALS: BP 129/90
[2017-10-12 20:36] VITALS: BP 146/89
[2017-10-13 00:23] VITALS: BP 144/81
[2017-10-13 06:52] LABS: HEMATOCRIT 42.8 % (42.0-52.0); HEMOGLOBIN 13.6 g/dl (14.0-18.0); MEAN CELL VOLUME 97.1 fl (80.0-94.0); MEAN CORPUSCULAR HGB 30.8 pg (27.0-31.0); MEAN CORPUSCULAR HGB CONC 31.8 g/dl (33.0-37.0); MEAN PLATELET VOLUME 10.9 fl (9.6-12.3); PLATELET COUNT AUTOMATED 227 10*3/uL (130-400); RED BLOOD COUNT 4.41 10*6/uL (4.50-5.90); RED CELL DISTRI WIDTH 13.4 % (0-14.5); WHITE BLOOD COUNT 25.7 10*3/uL (4.8-10.8)
[2017-10-13 07:24] LABS: ATYPICAL LYMPHS 6 % (0-0); TOTAL CELLS COUNTED 100 #CELLS
[2017-10-13 07:25] LABS: PLATELET SUFFICIENCY NORMAL (NORMAL)
[2017-10-13 08:00] VITALS: BP 143/90
[2017-10-13 16:00] VITALS: BP 131/82
[2017-10-13 20:00] VITALS: BP 137/96
[2017-10-14] VITALS: BP 150/89
[2017-10-14 06:18] LABS: HEMATOCRIT 39.3 % (42.0-52.0); HEMOGLOBIN 12.9 g/dl (14.0-18.0); MEAN CELL VOLUME 96.1 fl (80.0-94.0); MEAN CORPUSCULAR HGB 31.5 pg (27.0-31.0); MEAN CORPUSCULAR HGB CONC 32.8 g/dl (33.0-37.0); MEAN PLATELET VOLUME 10.7 fl (9.6-12.3); NUCLEATED RED BLOOD CELL 0.1 % (0.0-0.0); PLATELET COUNT AUTOMATED 241 10*3/uL (130-400); RED BLOOD COUNT 4.09 10*6/uL (4.50-5.90); RED CELL DISTRI WIDTH 13.4 % (0-14.5); WHITE BLOOD COUNT 29.4 10*3/uL (4.8-10.8)
[2017-10-14 06:47] LABS: ALBUMIN 3.1 gm/dl (3.1-4.5); BUN 18 mg/dl (7-24); CHLORIDE 101 mmol/L (98-107); POTASSIUM 4.1 mmol/L (3.5-5.1); SODIUM 139 mmol/L (136-145)
[2017-10-14 06:50] LABS: ALKALINE PHOSPHATASE 70 U/L (45-117); CREATININE 0.77 mg/dL (0.70-1.30); SGOT/AST 17 IU/L (3-35); SGPT/ALT 38 U/L (12-78); TOTAL PROTEIN 5.8 gm/dL (6.4-8.2)
[2017-10-14 07:17] LABS: TOTAL CELLS COUNTED 100 #CELLS
[2017-10-14 07:18] LABS: PLATELET SUFFICIENCY NORMAL (NORMAL)
[2017-10-14 08:00] VITALS: BP 128/76
[2017-10-14 12:00] VITALS: BP 126/74
[2017-10-14 16:00] VITALS: BP 144/84
[2017-10-14 20:00] VITALS: BP 153/97
[2017-10-14 21:30] VITALS: BP 130/80
[2017-10-15] VITALS: BP 152/80
[2017-10-15 06:27] LABS: HEMATOCRIT 38.1 % (42.0-52.0); HEMOGLOBIN 12.8 g/dl (14.0-18.0); MEAN CELL VOLUME 95.7 fl (80.0-94.0); MEAN CORPUSCULAR HGB 32.2 pg (27.0-31.0); MEAN CORPUSCULAR HGB CONC 33.6 g/dl (33.0-37.0); PLATELET COUNT AUTOMATED 229 10*3/uL (130-400); RED BLOOD COUNT 3.98 10*6/uL (4.50-5.90); RED CELL DISTRI WIDTH 13.4 % (0-14.5); WHITE BLOOD COUNT 27.9 10*3/uL (4.8-10.8)
[2017-10-15 06:52] LABS: ALBUMIN 3.2 gm/dl (3.1-4.5); BUN 24 mg/dl (7-24); CHLORIDE 101 mmol/L (98-107); CREATININE 0.72 mg/dL (0.70-1.30); POTASSIUM 4.6 mmol/L (3.5-5.1); SGOT/AST 17 IU/L (3-35); SGPT/ALT 41 U/L (12-78); SODIUM 139 mmol/L (136-145); TOTAL PROTEIN 5.9 gm/dL (6.4-8.2)
[2017-10-15 06:55] LABS: ALKALINE PHOSPHATASE 67 U/L (45-117)
[2017-10-15 07:06] LABS: TOTAL CELLS COUNTED 100 #CELLS
[2017-10-15 07:07] LABS: PLATELET SUFFICIENCY NORMAL (NORMAL)
[2017-10-15 08:00] VITALS: BP 114/83
[2017-10-15] MEDS ORDERED: VENTOLIN 02.5 MG/3 M INH (13:56)
[2017-10-15] MEDS ORDERED: FAMOTIDINE20 M1 PO (14:02)
[2017-10-15] MEDS ORDERED: PREDNISONE10 MG PO (14:02)
[2017-10-15] MEDS ORDERED: MUCINEX ER600 MG PO (14:02)
[2017-10-15] MEDS ORDERED: TEMAZEPAM15 M1 PO (14:02)
[2017-10-15] MEDS ORDERED: HYDROXYZINE PAM25 M1 PO (14:02)
[2017-10-15] MEDS ORDERED: DOXYCYCLINE MO100 M1 PO (14:02)
== END 2017-10-15 15:30 | disposition home or self-care (01) | DRG 871 ==
LOC: ED 19:48 → 4E 23:28 → EDHOLD 23:28 → 4E 23:35
PROVIDERS: Emergency Medicine; Family Medicine; Internal Medicine; Internal Medicine Critical Care Medicine; Nurse Practitioner Family; Student in an Organized Health Care Education/Training Program
PROC: 0BC88ZZ Extirpation of Matter from Left Upper Lobe Bronchus, Via Natural or Artificial Opening Endoscopic (ICD-10-PCS; principal; 2017-10-10)
PROC: 0BCB8ZZ Extirpation of Matter from Left Lower Lobe Bronchus, Via Natural or Artificial Opening Endoscopic (ICD-10-PCS; principal; 2017-10-10)
PROC: 0BC68ZZ Extirpation of Matter from Right Lower Lobe Bronchus, Via Natural or Artificial Opening Endoscopic (ICD-10-PCS; principal; 2017-10-10)
PROC: 0BC38ZZ Extirpation of Matter from Right Main Bronchus, Via Natural or Artificial Opening Endoscopic (ICD-10-PCS; principal; 2017-10-10)
PROC: 0BC58ZZ Extirpation of Matter from Right Middle Lobe Bronchus, Via Natural or Artificial Opening Endoscopic (ICD-10-PCS; principal; 2017-10-10)
PROC: 0BC18ZZ Extirpation of Matter from Trachea, Via Natural or Artificial Opening Endoscopic (ICD-10-PCS; principal; 2017-10-10)
PROC: 0BC48ZZ Extirpation of Matter from Right Upper Lobe Bronchus, Via Natural or Artificial Opening Endoscopic (ICD-10-PCS; principal; 2017-10-10)
PROC: 0BC98ZZ Extirpation of Matter from Lingula Bronchus, Via Natural or Artificial Opening Endoscopic (ICD-10-PCS; principal; 2017-10-10)
PROC: 0BC78ZZ Extirpation of Matter from Left Main Bronchus, Via Natural or Artificial Opening Endoscopic (ICD-10-PCS; principal; 2017-10-10)
DX: A41.9 Sepsis, unspecified organism (principal); J96.20 Acute and chronic respiratory failure, unspecified whether with hypoxia or hypercapnia; J10.08 Influenza due to other identified influenza virus with other specified pneumonia; T17.490A Other foreign object in trachea causing asphyxiation, initial encounter; J18.8 Other pneumonia, unspecified organism; T17.590A Other foreign object in bronchus causing asphyxiation, initial encounter; J44.0 Chronic obstructive pulmonary disease with (acute) lower respiratory infection; J44.1 Chronic obstructive pulmonary disease with (acute) exacerbation; R65.20 Severe sepsis without septic shock; K46.9 Unspecified abdominal hernia without obstruction or gangrene; R79.82 Elevated C-reactive protein (CRP); I10 Essential (primary) hypertension; D75.89 Other specified diseases of blood and blood-forming organs; F17.200 Nicotine dependence, unspecified, uncomplicated; E78.5 Hyperlipidemia, unspecified; F41.9 Anxiety disorder, unspecified; F32.9 Major depressive disorder, single episode, unspecified; J20.9 Acute bronchitis, unspecified; X58.XXXA Exposure to other specified factors, initial encounter; Y93.89 Activity, other specified; Z99.81 Dependence on supplemental oxygen; Z78.9 Other specified health status; Z71.6 Tobacco abuse counseling; Q67.6 Pectus excavatum; Y92.89 Other specified places as the place of occurrence of the external cause; Y99.8 Other external cause status

== ENCOUNTER → 2017-10-24 | Outpatient (CLI) | payer OTHER, MEDICAID ==
[~2017-10-24] MED LIST changes: +CEPHALEXIN500 M1 PO; +DOXYCYCLINE MO100 M1 PO; +FAMOTIDINE20 M1 PO; +HYDROXYZINE PAM25 M1 PO; +MUCINEX ER600 MG PO; +SPIRIVA18 MCG PO; +TEMAZEPAM15 M1 PO; +TUDORZA PRESS400 MCG INH; +VENTOLIN 02.5 MG/3 M INH
== END | disposition home or self-care (01) ==
LOC: RESCLI 09:01
DX: J44.9 Chronic obstructive pulmonary disease, unspecified (principal); K21.9 Gastro-esophageal reflux disease without esophagitis; I10 Essential (primary) hypertension; F41.9 Anxiety disorder, unspecified; F32.9 Major depressive disorder, single episode, unspecified; H90.5 Unspecified sensorineural hearing loss; G62.9 Polyneuropathy, unspecified; E44.0 Moderate protein-calorie malnutrition; F51.01 Primary insomnia; F17.210 Nicotine dependence, cigarettes, uncomplicated

== ENCOUNTER 2017-11-01 14:04 | Emergency (ER) | payer OTHER, MEDICAID ==
[~2017-11-01] VITALS: Ht 182.8 cm; Wt 72.1 kg
[~2017-11-01 14:04] MED LIST changes: -CEPHALEXIN500 M1 PO; -SPIRIVA18 MCG PO; -TUDORZA PRESS400 MCG INH
[2017-11-01] MEDS ORDERED: SPIRIVA18 MCG PO (14:09)
[2017-11-01] MEDS ORDERED: TUDORZA PRESS400 MCG INH (14:11)
[2017-11-01] MEDS ORDERED: CEPHALEXIN500 M1 PO (15:27)
== END 2017-11-01 15:34 | disposition home or self-care (01) ==
LOC: ED 14:04
DX: I80.8 Phlebitis and thrombophlebitis of other sites (principal); F17.200 Nicotine dependence, unspecified, uncomplicated; Z79.899 Other long term (current) drug therapy

== ENCOUNTER → 2017-11-06 | Outpatient (CLI) | payer OTHER, MEDICAID ==
[~2017-11-06] MED LIST changes: +CEPHALEXIN500 M1 PO; +SPIRIVA18 MCG PO; +TUDORZA PRESS400 MCG INH
[2017-11-06 11:25] LABS: BASO # 0.1 10*3/uL (0.0-0.1); BASO % 0.6 % (0.0-1.0); EOS # 0.1 10*3/uL (0.0-0.4); EOS % 1.4 % (1.0-4.0); HEMATOCRIT 38.5 % (42.0-52.0); LYMPH # 3.6 10*3/uL (1.3-4.4); LYMPH % 42.4 % (27.0-41.0); MEAN CELL VOLUME 92.3 fl (80.0-94.0); MEAN CORPUSCULAR HGB 31.2 pg (27.0-31.0); MEAN CORPUSCULAR HGB CONC 33.8 g/dl (33.0-37.0); MEAN PLATELET VOLUME 10.7 fl (9.6-12.3); MONO # 0.7 10*3/uL (0.1-1.0); MONO % 8.8 % (3.0-9.0); NEUT # 3.9 10*3/uL (2.3-7.9); NEUT % 46.4 % (47.0-73.0); PLATELET COUNT AUTOMATED 167 10*3/uL (130-400); RED BLOOD COUNT 4.17 10*6/uL (4.50-5.90); WHITE BLOOD COUNT 8.4 10*3/uL (4.8-10.8)
[2017-11-07 07:06] LABS: IMMUNOGLOBULIN G, QNT 478 mg/dL (700-1600); IMMUNOGLOBULIN M, QNT 32 mg/dL (20-172)
[2017-11-07 18:04] LABS: LEUKOCYTE ALK PHOSPHATASE 87 (25-130)
== END | disposition home or self-care (01) ==
LOC: LAB 10:49
PROVIDERS: Internal Medicine Hematology & Oncology
DX: D75.9 Disease of blood and blood-forming organs, unspecified (principal); D72.829 Elevated white blood cell count, unspecified

== ENCOUNTER 2019-10-29 17:10 | Emergency (ER) | payer OTHER, MEDICAID ==
[~2019-10-29] VITALS: Ht 182.8 cm; Wt 63.5 kg
[2019-10-29 18:47] LABS: HEMATOCRIT 50.1 % (42.0-52.0); HEMOGLOBIN 16.7 g/dl (14.0-18.0); MEAN CELL VOLUME 92.6 fl (80.0-94.0); MEAN CORPUSCULAR HGB 30.9 pg (27.0-31.0); MEAN CORPUSCULAR HGB CONC 33.3 g/dl (33.0-37.0); MEAN PLATELET VOLUME 10.4 fl (9.6-12.3); PLATELET COUNT AUTOMATED 172 10*3/uL (130-400); RED BLOOD COUNT 5.41 10*6/uL (4.50-5.90); RED CELL DISTRI WIDTH 13.2 % (0-14.5); WHITE BLOOD COUNT 18.7 10*3/uL (4.8-10.8)
[2019-10-29 18:55] LABS: BILIRUBIN NEGATIVE (NEGATIVE); BLOOD NEGATIVE (NEGATIVE); CLARITY CLEAR (CLEAR); COLOR YELLOW (YELLOW); GLUCOSE NEGATIVE (NEGATIVE); KETONE NEGATIVE (NEGATIVE); LEUKO ESTERASE NEGATIVE (NEGATIVE); NITRITE NEGATIVE (NEGATIVE); SPECIFIC GRAVITY 1.005 (1.005-1.030); UROBILINOGEN 0.2 E.U./dl (0.2-1.0)
[2019-10-29 19:01] LABS: ATYPICAL LYMPHS 2 % (0-0); PLATELET SUFFICIENCY NORMAL (NORMAL); TOTAL CELLS COUNTED 100 #CELLS
[2019-10-29 19:02] LABS: BACTERIA TRACE; EPITHELIAL CELLS 0-2; RBC 0-2 rbc/hpf (0-2); WBC 0-2 wbc/hpf (0-5)
[2019-10-29 19:03] LABS: URINE AMPHETAMINES < 1000 (1000ng/ml); URINE BARBITURATES < 200 (200ng/ml); URINE BENZODIAZEPINES < 200 (200ng/ml); URINE CANNABINOIDS (THC) < 50 (50ng/ml); URINE COCAINE < 300 (300ng/ml); URINE METHADONE < 300 (300ng/ml); URINE OPIATES < 300 (300ng/ml); URINE PHENCYCLIDINE < 25 (25ng/ml)
[2019-10-29 19:05] LABS: ALBUMIN 3.7 gm/dl (3.1-4.5); ALKALINE PHOSPHATASE 111 U/L (45-117); BUN 5 mg/dl (7-24); CHLORIDE 98 mmol/L (98-107); CREATININE 0.66 mg/dL (0.70-1.30); POTASSIUM 3.9 mmol/L (3.5-5.1); SGOT/AST 33 IU/L (3-35); SGPT/ALT 38 U/L (12-78); SODIUM 132 mmol/L (136-145)
== END 2019-10-29 19:20 | disposition left against medical advice (07) ==
LOC: ED 17:10
PROVIDERS: Nurse Practitioner Family
DX: F10.10 Alcohol abuse, uncomplicated (principal); Z53.20 Procedure and treatment not carried out because of patient's decision for unspecified reasons; F32.9 Major depressive disorder, single episode, unspecified; J44.9 Chronic obstructive pulmonary disease, unspecified; I10 Essential (primary) hypertension; F41.9 Anxiety disorder, unspecified; E78.00 Pure hypercholesterolemia, unspecified; F17.200 Nicotine dependence, unspecified, uncomplicated; Z79.899 Other long term (current) drug therapy

== ENCOUNTER 2019-11-02 17:47 | Inpatient (IN) | payer OTHER, MEDICAID ==
[~2019-11-02] VITALS: Ht 182.8 cm; Wt 61.2 kg
[2019-11-02 17:59] VITALS: BP 121/82
--- NOTE | 2019-11-02 18:15 | NUR ---
PT NOW COMPLAINS THAT HE HAS ALSO HAD "CHEST PAINS AND PALPITATIONS" INTERMITTENTLY FOR SOME TIME. PROVIDER MADE AWARE.
[2019-11-02 18:41] LABS: BASO # 0.1 10*3/uL (0.0-0.1); BASO % 0.5 % (0.0-1.0); EOS % 0.3 % (1.0-4.0); HEMATOCRIT 43.2 % (42.0-52.0); HEMOGLOBIN 14.7 g/dl (14.0-18.0); LYMPH # 4.4 10*3/uL (1.3-4.4); LYMPH % 37.9 % (27.0-41.0); MEAN CELL VOLUME 91.9 fl (80.0-94.0); MEAN CORPUSCULAR HGB 31.3 pg (27.0-31.0); MEAN PLATELET VOLUME 11.3 fl (9.6-12.3); MONO # 0.8 10*3/uL (0.1-1.0); MONO % 6.9 % (3.0-9.0); NEUT # 6.3 10*3/uL (2.3-7.9); NEUT % 54.1 % (47.0-73.0); PLATELET COUNT AUTOMATED 86 10*3/uL (130-400); WHITE BLOOD COUNT 11.7 10*3/uL (4.8-10.8)
[2019-11-02 18:41] LABS: BILIRUBIN NEGATIVE (NEGATIVE); BLOOD NEGATIVE (NEGATIVE); CLARITY CLEAR (CLEAR); COLOR YELLOW (YELLOW); GLUCOSE NEGATIVE (NEGATIVE); KETONE 1+ (NEGATIVE); LEUKO ESTERASE NEGATIVE (NEGATIVE); NITRITE NEGATIVE (NEGATIVE); PH 7.5 (5.0-9.0)
[2019-11-02 18:46] LABS: URINE AMPHETAMINES < 1000 (1000ng/ml); URINE BARBITURATES < 200 (200ng/ml); URINE BENZODIAZEPINES < 200 (200ng/ml); URINE CANNABINOIDS (THC) < 50 (50ng/ml); URINE COCAINE < 300 (300ng/ml); URINE METHADONE < 300 (300ng/ml); URINE OPIATES < 300 (300ng/ml)
[2019-11-02 18:47] LABS: BACTERIA TRACE; RBC 0-2 rbc/hpf (0-2)
[2019-11-02 18:51] LABS: URINE PHENCYCLIDINE < 25 (25ng/ml)
[2019-11-02 18:54] LABS: ALBUMIN 3.6 gm/dl (3.1-4.5); ALKALINE PHOSPHATASE 114 U/L (45-117); BUN 9 mg/dl (7-24); CHLORIDE 104 mmol/L (98-107); CREATININE 0.67 mg/dL (0.70-1.30); POTASSIUM 4.1 mmol/L (3.5-5.1); SGOT/AST 149 IU/L (3-35); SGPT/ALT 105 U/L (12-78); SODIUM 138 mmol/L (136-145); TOTAL PROTEIN 6.6 gm/dL (6.4-8.2)
[2019-11-02 18:56] LABS: ETHYL ALCOHOL < 3.0 mg/dl (<3)
--- NOTE | 2019-11-02 19:00 | NUR ---
PATIENT WITH NO COMPLAINTS OR DISTRESS AT THIS TIME. PATIENT REQUESTING NICODERM PATCH. DR. SORENSON MADE AWARE.
[2019-11-02 19:53] VITALS: BP 130/78
--- NOTE | 2019-11-02 20:06 | NUR ---
SPOKE WITH ARNAUD BORRERO IN [facility] AND SHE REQUESTED THE PATIENT BE BROUGHT UP AT 2024. NO CONCERNS NOTED FROM THE PATIENT AT THIS TIME.
[2019-11-02 20:25] VITALS: BP 129/91
--- NOTE | 2019-11-02 20:25 | NUR ---
A 54 YEAR OLD MALE PATIENT, admitted to [facility], under the services of RITU Savage DO with a diagnosis of ETOH WITHDRAWAL. Chief complaint is DRINKS 18 PACK OF BEER A DAY, HAS NOT HAD A DRINK TODAY, WAS FEELING SOME NAUSEA AND TREMORS. Patient arrived via CART WITH RN from ER. Monitor applied. Initial assessment completed. Vital signs taken and recorded. See assessment for past medical history, medications and allergies. Patient and/or family oriented to unit. [id number]. Clothing/patient valuable form completed. ARNAUD MILLAN
--- NOTE | 2019-11-02 20:30 | NUR ---
PATIENT PROVIDED WITH BOX LUNCH AND ROBYN MERRITT PER REQUEST. COMPLAINTS OF ANXIETY AND FEELINGS OF NERVOUSNESS. PATIENT HAS MILD TREMOR TO BOTH HANDS THAT IS VISIBLE AND CAN BE FELT. RN WILL MEDICATE ACCORDING TO CLAUDIA ORDERS
--- NOTE | 2019-11-02 20:37 | NUR ---
PATIENT MEDICATED WITH ATIVAN AND LIBRIUM PER DRS ORDER FOR COMPAINTS OF ANXIETY AND VISIBLE TREMOR TO BILATERAL HANDS AND TONGUE. PATIENT UNABLE TO SIT STILL OR FOCUS THROUGHOUT ASSESSMENT. PATIENT VERY RESTLESS AND IS FIDGETING AROUND THE BED. RN WILL MONITOR FOR EFFECTIVENESS
--- NOTE | 2019-11-02 20:53 | NUR ---
NICOTENE PATCH APPLIED TO PATIENTS RIGHT UPPER ARM AREA PER PATIENT REQUEST. PATIENT COMPLAINS OF FEELINGS OF NERVOUSNESS RELATED TO NOT BEING ABLE TO SMOKE. PATIENT ALSO REQUESTING A SLEEPING PILL AT THIS TIME, STATES HE HAS TROUBLE SLEEPING AND KNOWS HE WILL BE UNABLE TO SLEEP HERE. RN INSTRUCTED PATIENT THAT I WILL BRING SLEEPING PILL TO HIM ONCE HE IS DONE WITH HIS MEAL.
--- NOTE | 2019-11-02 21:15 | NUR ---
PATIENT IS NOW MUCH MORE RELAXED THAN ON ADMISSION, PATIENT IS RESTING WITH EYES CLOSED, APPEARS TO BE SLEEPING, IS SNORING LOUDLY. HEARTRATE REMAINS IN THE 120'S PER CLICKER OPERATOR. BED ALARM WAS APPLIED FOR PATIENT SAFETY. RN WILL CONTINUE TO MONITOR
[2019-11-02] MEDS ORDERED: Ipratropium Brom3 ML INH (21:23)
--- NOTE | 2019-11-02 21:24 | NUR ---
MEDICATION RECONCILLIATION COMPLETED WITH NAZ WALKER AT THIS TIME. [facility] PHARMACIST STATES PATIENT HASNT PICKED UP ANYTHING OTHER THAN HIS INHALERS SINCE AUGUST. PATIENT IS UNAWARE OF THE NAMES OF THE MEDICATIONS HE TAKES AT HOME AND SUGGESTED CALLING MATHIEUE AIDE.
[2019-11-03] VITALS: BP 113/72
[2019-11-03 04:00] VITALS: BP 120/68
[2019-11-03 05:20] LABS: ALBUMIN 2.8 gm/dl (3.1-4.5); ALKALINE PHOSPHATASE 88 U/L (45-117); BUN 12 mg/dl (7-24); CHLORIDE 109 mmol/L (98-107); CREATININE 0.64 mg/dL (0.70-1.30); PHOSPHOROUS 3.7 mg/dL (2.5-4.9); POTASSIUM 3.7 mmol/L (3.5-5.1); SGOT/AST 88 IU/L (3-35); SGPT/ALT 77 U/L (12-78); SODIUM 141 mmol/L (136-145); TOTAL PROTEIN 5.6 gm/dL (6.4-8.2)
[2019-11-03 06:01] LABS: HEMATOCRIT 40.2 % (42.0-52.0); HEMOGLOBIN 13.2 g/dl (14.0-18.0); MEAN CELL VOLUME 92.6 fl (80.0-94.0); MEAN CORPUSCULAR HGB 30.4 pg (27.0-31.0); MEAN CORPUSCULAR HGB CONC 32.8 g/dl (33.0-37.0); MEAN PLATELET VOLUME 12.2 fl (9.6-12.3); PLATELET COUNT AUTOMATED 75 10*3/uL (130-400); RED BLOOD COUNT 4.34 10*6/uL (4.50-5.90); RED CELL DISTRI WIDTH 13.1 % (0-14.5); WHITE BLOOD COUNT 10.5 10*3/uL (4.8-10.8)
[2019-11-03 06:26] LABS: ATYPICAL LYMPHS 10 % (0-0); PLATELET SUFFICIENCY LOW (NORMAL); TOTAL CELLS COUNTED 100 #CELLS
[2019-11-03 06:27] LABS: POLYCHROMASIA SLIGHT
[2019-11-03 08:00] VITALS: BP 122/81
--- NOTE | 2019-11-03 09:30 | NUR ---
PATIENT MEDICATED WITH ATIVAN 1MG IV PER PRN ORDER DUE TO WHEN PATIENT AWAKENS HE IS TREMORING MODERATELY AT THIS TIME. WILL CONTINUE TO MONITOR.
[2019-11-03 12:00] VITALS: BP 106/62
--- NOTE | 2019-11-03 13:50 | NUR ---
PATIENT VERY SHAKY. MEDICATED WITH ATIVAN PER PRN ORDER.
--- NOTE | 2019-11-03 15:45 | NUR ---
PATIENT VERY SHAKY AND SLIGHTLY CONFUSED. MEDICATED WITH VISTARIL PER PRN ORDER.
[2019-11-03 16:00] VITALS: BP 136/91
[2019-11-03 19:22] VITALS: BP 131/89
--- NOTE | 2019-11-03 20:17 | NUR ---
PT. RESTING IN BED, RESTLESS. HEP LOCK IN RA ASYMPT. LUNGS HAVE EXP. WHEEZES BILAT, PULSE OX 97% ON RA. ABDOMEN SOFT ,NODISTENDED AND NORMO. NO PERIPHERAL EDEMA NOTED. RESP. EASY AND REG, NO DISTRESS. VERA JARAMILLO RN
--- NOTE | 2019-11-03 20:30 | NUR ---
PT. GIVEN ROBAXIN AND BENTYL FOR STOMACH AND GENERALIZED ACHES AT 2023. PT HAS TREMORS AND IS RESTLESS. VERA JARAMILLO RN
--- NOTE | 2019-11-03 22:10 | NUR ---
PT. GIVEN ATIVAN AT [address] DAMON NOTIFIED OF PATIENTS AGGITATION, ORDERS RECEIVED. GAIT VERY UNSTEADY. BED EXIT ON AND RAILS UP FOR SAFETY VERA JARAMILLO RN
--- NOTE | 2019-11-03 22:16 | NUR ---
ROBAXIN AND BENTYL MINIMALLY EFFECTIVE PER PT. PT. GETTING MORE AND MORE CONFUSED. ATIVAN GIVEN AT 2140 FOR ANXIETY. PT. INCREASING AGGRESSIVE AND WANTS TO LEAVE. ANSWERS ANSWERS APPROPRIATELY, BUT PUSHING NUMBERS ON PUMP AND HANGING TREATMENT ON PUMP. CONFUSED WITH TREMORS. VERA JARAMILLO RN
--- NOTE | 2019-11-03 22:53 | NUR ---
PT. DROWSY BUT RESTLESS. ATIVAN MILDLY EFFECTIVE. VERA JARAMLILO RN
--- NOTE | 2019-11-03 23:15 | NUR ---
PT. GIVEN ATIVAN ORDERED AT 2234 AND AGAIN AT 2315 FOR DT'S. PT. REMAINS RESTLESS WITH TREMBLES. CONFUSED AT TIMES.
--- NOTE | 2019-11-03 23:42 | NUR ---
PT. GIVEN ATIVAN AT 2340 ORDERED FOR RESTLESSNESS, CHEWING ON EARPHONES. VERY RESTLESS.
[2019-11-04] VITALS: BP 140/81
--- NOTE | 2019-11-04 00:19 | NUR ---
PT. GIVEN ATIVAN ORDERED FOR CONTINUING RESTLESSNESS AND CONFUSION.
--- NOTE | 2019-11-04 00:20 | NUR ---
PT. GIVEN 4MG OF ATIVAN ORDERED FOR RESTLESSNESS AND CONFUSION. VERA JARAMILLO RN
--- NOTE | 2019-11-04 00:54 | NUR ---
PT. GIVEN ATIVAN AT 0055 ORDERED FOR RESTLESSNESS AND DT'S. PREVIOUS DOSES EFFECTIVE FOR SHORT PERIODS (10 MIN) ONLY TO SLOW PATIENT DOWN. PT. REMAINS AWAKE AND ACTIVE. VERA JARAMILLO RN
--- NOTE | 2019-11-04 01:04 | NUR ---
PT. CURRENTLY SMOKING HIS CHEWING GUM AND FLICKING ASHES FROM PULSE OX. VERY CONFUSED. ASKED NURSE FOR JOINT. ATTEMPTS TO REORIENT UNSUCCESSFUL.
--- NOTE | 2019-11-04 02:11 | NUR ---
PT. SLEEPING, ATIVAN EFFECTIVE CURRENTLY.
--- NOTE | 2019-11-04 02:58 | NUR ---
PT. GIVEN ATIVAN AT 0257 ORDERED FOR DT'S AND RESLTESSNESS. VERA JARAMILLO RN
--- NOTE | 2019-11-04 03:06 | NUR ---
PT. ATTEMPTING TO GET OUT OF BED AND PULL OF LEADS AND PULLING AT IV. SOFT WRIST RESTRAINTS ON BILAT FOR PATIENT SAFETY. VERA JARAMILLO RN
--- NOTE | 2019-11-04 03:29 | NUR ---
PT. GIVEN ATIVAN ORDERED AGAIN FOR AGGITATION AND RESTLESSNESS. PT. REMAINS CONFUSED AND UNCOOPRERATIVE.
--- NOTE | 2019-11-04 03:35 | NUR ---
PT. YELLING "ELDRIDGE" AND SWEARING AT STAFF. VERY AGGITATED AT PRESENT.
[2019-11-04 04:00] VITALS: BP 152/97
--- NOTE | 2019-11-04 04:08 | NUR ---
PT. PULLING AT TRAY WITH TOES. PT. REMAINS VERY CONFUSED AND SHAKEY. VERA JARAMILLO RN
--- NOTE | 2019-11-04 04:14 | NUR ---
PT. MUMBLING, RESTRAINTS UNTIED BUT LEFT ON WRISTS. PA AT BEDSIDE. PT. LESS RESTLESS WITH RESTRAINTS OFF AT PRSEENT. WILL CONTINUE TO MONITOR CLOSELY. VERA JARAMILLO RN
--- NOTE | 2019-11-04 04:22 | NUR ---
PT. MORE COOPERATIVE, RESTRAINTS REMOVED, PT. SLEEPING ON SIDE. PA AT BEDSIDE. BED ALARM ON. VERA JARAMILLO RN
--- NOTE | 2019-11-04 04:37 | NUR ---
RESTRAINTS PLACED BACK ON PATIENT DUE TO PATIENT ATTEMPTING TO "GO HOME", GAIT UNSTEADY, THROWING LEGS OVER RAIL AND SMOKING PULSE OX IF IT WERE A CIGARETTE. PT. YELLING AT STAFF, UNABLE TO CALM PATIENT AT PRESENT. VERA JARAMILLO RN
--- NOTE | 2019-11-04 04:58 | NUR ---
PT. GIVEN ATIVAN ORDERED AT 0448 FOR RESTLESSNESS AND UNCOOPERATIVE. VERA JARAMILLO RN
--- NOTE | 2019-11-04 05:09 | NUR ---
PT. SLEEPING, ATIVAN TEMPORARILY EFFECTIVE. PULSE OX 100% ON 3L NC
--- NOTE | 2019-11-04 06:01 | NUR ---
PT. GIVEN ATIVAN AGAIN AT 0600 FOR DT'S AND RESTLESSNESS, PULLING AT RESTRAINTS, ETC. VERA JARAMILLO RN
--- NOTE | 2019-11-04 06:10 | NUR ---
PT. AGAIN TRYING TO SMOKE PULSE OX, REMAINS CONFUSED WITH DT'S. TREMORS MILD. VERA JARAMILLO RN
--- NOTE | 2019-11-04 07:40 | NUR ---
PATIENT VERY RESTLESS AND AGITATED. PULLING AT RESTRAINTS. VERY CONFUSED. MEDICATED WITH ATIVAN 4MG IV PER PRN ORDER. WILL CONTINUE TO MONITOR.
[2019-11-04 08:00] VITALS: BP 150/93
--- NOTE | 2019-11-04 08:14 | NUR ---
PHYSICAL THERAPY Screen received pt admit from home with ETOH withdrawl,sepsis, and pneumonitis. Currently per nsg notes 11/04/19 pt is confused and agitated with intermittent use of restraints. Please consult PT if/as medically appropriate pending progress and functional status as declined, thank you. Emilia Welch PT
[2019-11-04 08:15] LABS: BASO % 0.1 % (0.0-1.0); EOS % 0.1 % (1.0-4.0); HEMATOCRIT 38.3 % (42.0-52.0); HEMOGLOBIN 12.9 g/dl (14.0-18.0); LYMPH # 4.7 10*3/uL (1.3-4.4); LYMPH % 31.4 % (27.0-41.0); MEAN CELL VOLUME 93.6 fl (80.0-94.0); MEAN CORPUSCULAR HGB 31.5 pg (27.0-31.0); MEAN CORPUSCULAR HGB CONC 33.7 g/dl (33.0-37.0); MEAN PLATELET VOLUME 12.4 fl (9.6-12.3); MONO # 0.8 10*3/uL (0.1-1.0); MONO % 5.1 % (3.0-9.0); NEUT # 9.3 10*3/uL (2.3-7.9); PLATELET COUNT AUTOMATED 67 10*3/uL (130-400); RED BLOOD COUNT 4.09 10*6/uL (4.50-5.90); RED CELL DISTRI WIDTH 13.1 % (0-14.5); WHITE BLOOD COUNT 14.8 10*3/uL (4.8-10.8)
[2019-11-04 08:38] LABS: ALBUMIN 3.3 gm/dl (3.1-4.5); ALKALINE PHOSPHATASE 96 U/L (45-117); BUN 7 mg/dl (7-24); CHLORIDE 110 mmol/L (98-107); CREATININE 0.56 mg/dL (0.70-1.30); POTASSIUM 3.4 mmol/L (3.5-5.1); SGOT/AST 48 IU/L (3-35); SGPT/ALT 67 U/L (12-78); SODIUM 139 mmol/L (136-145); TOTAL PROTEIN 6.2 gm/dL (6.4-8.2)
--- NOTE | 2019-11-04 09:20 | NUR ---
PATIENT REMAINS AGITATED AND RESTLESS. ATTEMPTING TO PULL AT IV AND OXYGEN. REORIENTATION INEFFECTIVE. MEDICATED WITH ATIVAN 4MG IV PER PRN ORDER. WILL CONTINUE TO MONITOR.
--- NOTE | 2019-11-04 11:00 | NUR ---
PATIENT REMAINS RESTLESS AND AGITATED. FREQUENTLY PUTTING LEGS OVER SIDERAILS. PULLING AT RESTRAINTS. VERY CONFUSED AT THIS TIME. MEDICATED WITH ATIVAN 4MG IV PER PRN ORDER.
--- NOTE | 2019-11-04 11:26 | NUR ---
PATIENT REMEDICATED WITH ATIVAN PER PRN ORDER DUE TO REMAINS AGITATED AND RESTLESS.
--- NOTE | 2019-11-04 11:57 | NUR ---
PATIENT REMAINS RESTLESS. THROWING LEGS OVER SIDERAILS. PULLING AT IV. MEDICATED WITH ATIVAN 4MG IV PER PRN ORDER.
[2019-11-04 12:00] VITALS: BP 129/75
--- NOTE | 2019-11-04 12:50 | NUR ---
REMAINS AGITATED AND RESTLESS. REMEDICATED WITH ATIVAN 4MG IV PER PRN ORDER.
--- NOTE | 2019-11-04 13:31 | NUR ---
case management unable to visit with patient due to agitation and confusion, case management will follow for any needs
--- NOTE | 2019-11-04 15:50 | NUR ---
Nursing screen received and chart reviewed. Patient admitted for alcohol withdrawal, sepsis, and pneuomonitis. Per chart review, patient is presenting with increased agitation and confusion. If patient has a decline in ADLs, functional transfers, or mobility, please send OT orders when appropriate for an OT eval. Thank you. Donna Camarena, OTR/L
[2019-11-04 16:00] VITALS: BP 141/87
[2019-11-04 20:00] VITALS: BP 120/72
--- NOTE | 2019-11-04 20:01 | NUR ---
PT. GIVEN BENTYL, ROBAXIN, VISTARIL AND ATIVAN AT 3 ORDERED FOR STOMACH ACHES, MUSCLE ACHES, ANXIETY AND RESTLESSNESS AND DT'S.
--- NOTE | 2019-11-04 20:13 | NUR ---
PT. REMAINS VERY CONFUSED AND RESTLESS. HEP LOCK IN LEFT UPPER ARM ASYMPT. LUNGS DIMINISHED BILAT, PULSE OX 99% ON 2L NC. ABDOMEN SOFT, NONDISTENDED AND NORMO. NO PERIPHERAL EDEMA NOTED. PT. IS DISORIENTED, UNABLE TO REORIENT. VERA JARAMILLO RN
--- NOTE | 2019-11-04 20:24 | NUR ---
PT. REMAINS RESTLESS, MOVING SLOWER. ATIVAN, AND VISTARIL INEFFECTIVE. VERA JARAMILLO RN
--- NOTE | 2019-11-04 21:03 | NUR ---
PT. GIVEN ATIVAN ORDERED AGAIN FOR RESTLESSNESS AND AGGITATION, SWEARING AT 1:1 FOR NOT GIVING HIM COFFEE THAT HE SPILLED. ATTEMPTING TO ASSIST PATIENT WITH DRINKING, PT. BECOMING BELIGERENT AT TIMES. RESTRAINTS ON BILAT WRISTS. VERA JARAMILLO RN
[2019-11-05] VITALS: BP 126/66
--- NOTE | 2019-11-05 00:20 | NUR ---
PT. GIVEN ATIVAN AT 0002 ORDERED FOR CONTINUED ANXIETY AND RESTLESSNESS AND DT'S. VERA JARAMILLO RN
--- NOTE | 2019-11-05 00:25 | NUR ---
PT. RESTRAINED BILAT TO PREVENT INJURY TO SELF OR OTHERS.
--- NOTE | 2019-11-05 00:42 | NUR ---
PT. STATING STAFF TOOK PICTURES OF HIM. TOOK OFF HIS CLOTHES AND THREW HIM IN THE HALLWAY AND TOOK PICTURES OF HIM NAKED. ATTEMPTS TO REORIENT PT UNSUCCESSFUL. VERA JARAMILLO RN
--- NOTE | 2019-11-05 00:50 | NUR ---
PT GIVEN ATIVAN ORDERED FOR RESTLESSNESS AND CONFUSION.
--- NOTE | 2019-11-05 01:55 | NUR ---
PT. ATTEMPTED TO HIT NURSE (HESHAM TO) ASSISTING WITH PT. CARE. PT. PLACED BACK IN SOFT WRIST RESTRAINTS BILAT. VERA JARAMILLO RN
--- NOTE | 2019-11-05 01:57 | NUR ---
PT. GIVEN ATIVAN ORDERED FOR COMBATIVENESS AND RESTLESSNESS. VERA JARAMILLO RN
--- NOTE | 2019-11-05 02:18 | NUR ---
PT. CHEWING AND BITING ON OXYGEN. ATTEMPTS TO REORIENT UNSUCCESSFUL. VERA JARAMILLO RN
--- NOTE | 2019-11-05 03:49 | NUR ---
PT. ATTEMPTING TO KICK AT STAFF, CLIMBING OVER THE RAILS AND HANGING BY ARMS/WRIST RESTRAINTS. ONE LEG RESTRAINED TO KEEP PT FROM HURTING HIMSELF. PT. YELLING OUT FOR ANMOL AND FREDRICK AND VISIBLY SOB. ATIVAN GIVEN ORDERED FOR CONFUSION. VERA JARAMILLO RN
[2019-11-05 04:00] VITALS: BP 151/93
--- NOTE | 2019-11-05 04:04 | NUR ---
PT. ATTEMPTING TO CHEW RESTRAINTS. YELLING OUT AND PULLING OFF MONITOR AND DIAPER. UNABLE TO REORIENT. VERA JARAMILLO RN
--- NOTE | 2019-11-05 04:10 | NUR ---
PT.S HR 164, PT. VERY ANXIOUS AND COMBATIVE. GIVEN MORE ATIVAN ORDERED. VERA JARAMILLO RN
--- NOTE | 2019-11-05 05:17 | NUR ---
PT. GIVEN ATIVAN ORDERED FOR RESTLESSNESS, CONFUSION AND YELLING OUT. WILL CONTINUE TO MONITOR. VERA JARAMILLO RN
--- NOTE | 2019-11-05 05:46 | NUR ---
PT. GIVEN ATIVAN ORDERED FOR RESTLESSNESS, THROWING LEGS OVER RAIL AND PULLING AT RESTRAINTS YELLING. VERA JARAMILLO RN
--- NOTE | 2019-11-05 05:47 | NUR ---
ALL DOSES OF ATIVAN ARE MINIMALLY EFFECTIVE FOR SHORT PERIODS.
[2019-11-05 05:55] LABS: ALBUMIN 3.4 gm/dl (3.1-4.5); ALKALINE PHOSPHATASE 81 U/L (45-117); BUN 9 mg/dl (7-24); CHLORIDE 110 mmol/L (98-107); CREATININE 0.79 mg/dL (0.70-1.30); POTASSIUM 3.9 mmol/L (3.5-5.1); SGOT/AST 56 IU/L (3-35); SGPT/ALT 81 U/L (12-78); SODIUM 141 mmol/L (136-145); TOTAL PROTEIN 6.2 gm/dL (6.4-8.2)
[2019-11-05 06:07] LABS: BASO % 0.1 % (0.0-1.0); HEMATOCRIT 40.2 % (42.0-52.0); HEMOGLOBIN 13.2 g/dl (14.0-18.0); LYMPH # 4.7 10*3/uL (1.3-4.4); LYMPH % 28.7 % (27.0-41.0); MEAN CELL VOLUME 94.1 fl (80.0-94.0); MEAN CORPUSCULAR HGB 30.9 pg (27.0-31.0); MEAN CORPUSCULAR HGB CONC 32.8 g/dl (33.0-37.0); MEAN PLATELET VOLUME 12.5 fl (9.6-12.3); MONO # 0.5 10*3/uL (0.1-1.0); NEUT % 67.6 % (47.0-73.0); PLATELET COUNT AUTOMATED 76 10*3/uL (130-400); RED BLOOD COUNT 4.27 10*6/uL (4.50-5.90); RED CELL DISTRI WIDTH 13.3 % (0-14.5); WHITE BLOOD COUNT 16.3 10*3/uL (4.8-10.8)
--- NOTE | 2019-11-05 06:30 | NUR ---
PT. HAS NOT SLEPT AT ALL THIS PAST NIGHT. REMAINS ANXIOUS AND CONFUSED. VERA JARAMILLO RN
[2019-11-05 08:00] VITALS: BP 110/66
[2019-11-05 12:00] VITALS: BP 116/74
[2019-11-05 16:00] VITALS: BP 123/76
[2019-11-05 20:00] VITALS: BP 111/68
--- NOTE | 2019-11-05 20:05 | NUR ---
PT. RESTING IN BED, SLEEPING. AROUSES WITH ASSESSMENT THEN FALLS BACK TO SLEEP. HEP LOCK IN LEFT UPPER ARM ASYMP. LUNGS DIMINISHED BILAT, PULSE OX 97% ON 2L NC. ABDOMEN SOFT, NONDISTENDED AND NORMO. NO PERIPHERAL EDEMA NOTED. RESP. EASY AND REG ,NO DISTRESS. VERA JARAMILLO, RN
--- NOTE | 2019-11-05 23:35 | NUR ---
PATIENT WANTED SOMETHING TO HELP HIM SLEEP AND FELT ACHEY VISTARIL GIVEN TO HELP HIM RELAX AND ROBAXIN FOR ACHEY SEE MAR. ALSO NICOTROL INHALER CARTRIDGE CHANGED. HARSH MOIST COUGH NOTED. O2 2L IN USE. LUNG SOUNDS CLEAR ON RIGHT SIDE WITH WHEEZING ON LEFT SIDE. PULSE OX 97%.
[2019-11-06] VITALS: BP 125/72
--- NOTE | 2019-11-06 00:05 | NUR ---
PATIENT SLEEPING WITH SNORING RESP. ROBAXIN AND VISTARIL EFFECTIVE.
--- NOTE | 2019-11-06 00:36 | NUR ---
24 HR chart check completed.
--- NOTE | 2019-11-06 02:42 | NUR ---
SLEEPING. NO DISTRESS
[2019-11-06 04:00] VITALS: BP 112/74
[2019-11-06 06:18] LABS: ALKALINE PHOSPHATASE 97 U/L (45-117); BUN 11 mg/dl (7-24); CHLORIDE 107 mmol/L (98-107); CREATININE 0.63 mg/dL (0.70-1.30); POTASSIUM 3.9 mmol/L (3.5-5.1); SGOT/AST 46 IU/L (3-35); SGPT/ALT 81 U/L (12-78); SODIUM 141 mmol/L (136-145); TOTAL PROTEIN 5.5 gm/dL (6.4-8.2)
[2019-11-06 06:19] LABS: BASO % 0.1 % (0.0-1.0); EOS % 0.1 % (1.0-4.0); HEMATOCRIT 40.4 % (42.0-52.0); HEMOGLOBIN 13.1 g/dl (14.0-18.0); LYMPH # 4.2 10*3/uL (1.3-4.4); MEAN CELL VOLUME 95.3 fl (80.0-94.0); MEAN CORPUSCULAR HGB 30.9 pg (27.0-31.0); MEAN CORPUSCULAR HGB CONC 32.4 g/dl (33.0-37.0); MEAN PLATELET VOLUME 12.8 fl (9.6-12.3); MONO # 0.7 10*3/uL (0.1-1.0); NEUT # 9.5 10*3/uL (2.3-7.9); NEUT % 65.2 % (47.0-73.0); PLATELET COUNT AUTOMATED 85 10*3/uL (130-400); RED BLOOD COUNT 4.24 10*6/uL (4.50-5.90); RED CELL DISTRI WIDTH 13.4 % (0-14.5); WHITE BLOOD COUNT 14.5 10*3/uL (4.8-10.8)
[2019-11-06 08:00] VITALS: BP 103/64
[2019-11-06 11:10] VITALS: BP 116/83
[2019-11-06] MEDS ORDERED: LEVAQUIN750 M1 PO (12:11)
[2019-11-06] MEDS ORDERED: PREDNISONE10 MG PO (12:11)
--- NOTE | 2019-11-06 12:23 | NUR ---
PT AWAKE AND ALERT AT THIS TIME. ASSISTED OUT OF BED IN TO RECLINER CHAIR WITH ASSIST. LINENS CHANGED.
--- NOTE | 2019-11-06 13:00 | NUR ---
AMBULATED PT AROUND NURSES STATION.
--- NOTE | 2019-11-06 13:30 | NUR ---
Discharge instructions reviewed with patient/family. Patient receptive and verbalizes understanding. Follow-up care arranged. Written instructions given to patient/family. BRIGETTE DANIELS
--- NOTE | 2019-11-06 13:46 | NUR ---
PT DISCHARGED AT THIS TIME. PT TAKEN DOWN IN WHEELCHAIR TO MEET CAB TO GO HOME.
== END 2019-11-06 13:46 | disposition home or self-care (01) | DRG 871 ==
LOC: ED 17:47 → ICCU 19:48 → EDHOLD 19:48 → ICCU 20:03
PROVIDERS: Emergency Medicine; Internal Medicine; Student in an Organized Health Care Education/Training Program; ADMIT Internal Medicine
DX: A41.9 Sepsis, unspecified organism (principal); J18.9 Pneumonia, unspecified organism; J44.1 Chronic obstructive pulmonary disease with (acute) exacerbation; J44.0 Chronic obstructive pulmonary disease with (acute) lower respiratory infection; F10.231 Alcohol dependence with withdrawal delirium; Z68.1 Body mass index [BMI] 19.9 or less, adult; J96.11 Chronic respiratory failure with hypoxia; E44.0 Moderate protein-calorie malnutrition; E78.5 Hyperlipidemia, unspecified; I10 Essential (primary) hypertension; F17.210 Nicotine dependence, cigarettes, uncomplicated; F41.9 Anxiety disorder, unspecified; F51.01 Primary insomnia; R74.0 Nonspecific elevation of levels of transaminase and lactic acid dehydrogenase [LDH]; E55.9 Vitamin D deficiency, unspecified; D64.9 Anemia, unspecified; D69.6 Thrombocytopenia, unspecified; E87.8 Other disorders of electrolyte and fluid balance, not elsewhere classified; Z71.6 Tobacco abuse counseling; Z79.899 Other long term (current) drug therapy; Z82.49 Family history of ischemic heart disease and other diseases of the circulatory system; Z99.81 Dependence on supplemental oxygen; Q67.6 Pectus excavatum

== ENCOUNTER 2022-04-19 17:23 | Inpatient (IN) | payer OTHER, MEDICAID ==
[~2022-04-19] VITALS: Ht 182.8 cm; Wt 61.9 kg
[~2022-04-19 17:23] MED LIST changes: +DOXYCYCLINE HY100 M3 PO; +Ipratropium Brom3 ML INH; +LEVAQUIN750 M1 PO; +VITAMIN D3125 MC1 PO
[2022-04-19 17:24] VITALS: BP 148/100
[2022-04-19 17:49] LABS: HEMATOCRIT 42.2 % (42.0-52.0); MEAN CELL VOLUME 91.9 fl (80.0-94.0); MEAN CORPUSCULAR HGB 32.5 pg (27.0-31.0); MEAN CORPUSCULAR HGB CONC 35.3 g/dl (33.0-37.0); MEAN PLATELET VOLUME 10.9 fl (9.6-12.3); RED BLOOD COUNT 4.59 10*6/uL (4.50-5.90); RED CELL DISTRI WIDTH 12.6 % (0-14.5); WHITE BLOOD COUNT 4.5 10*3/uL (4.8-10.8)
[2022-04-19 18:05] LABS: ALKALINE PHOSPHATASE 114 U/L (45-117); BUN 4 mg/dl (7-24); CHLORIDE 99 mmol/L (98-107); CREATININE 0.57 mg/dL (0.70-1.30); POTASSIUM 3.8 mmol/L (3.5-5.1); SGOT/AST 182 IU/L (3-35); SGPT/ALT 156 U/L (12-78); SODIUM 129 mmol/L (136-145); TOTAL PROTEIN 6.7 gm/dL (6.4-8.2)
[2022-04-19 18:23] LABS: MANUAL DIFF REFLEX YES; PLATELET COUNT AUTOMATED 26 10*3/uL (130-400)
[2022-04-19 18:23] LABS: BILIRUBIN Negative (Negative); BLOOD Negative (Negative); CLARITY Clear (Clear); COLOR Yellow (Yellow); GLUCOSE Negative (Negative); KETONE Negative (Negative); LEUKO ESTERASE Negative (Negative); NITRITE Negative (Negative); SPECIFIC GRAVITY <= 1.005 (1.001-1.030); UROBILINOGEN 0.2 E.U./dl (0.0-1.0)
[2022-04-19 18:29] LABS: ATYPICAL LYMPHS 5 % (0-0); BASOPHILS 2 % (0-1); PLATELET SUFFICIENCY LOW (NORMAL); TOTAL CELLS COUNTED 100 #CELLS
[2022-04-19 18:36] LABS: RBC 0-2 rbc/hpf (0-2)
[2022-04-19 18:40] LABS: URINE AMPHETAMINES < 1000 (1000ng/ml); URINE BARBITURATES < 200 (200ng/ml); URINE BENZODIAZEPINES < 200 (200ng/ml); URINE CANNABINOIDS (THC) < 50 (50ng/ml); URINE COCAINE < 300 (300ng/ml); URINE METHADONE < 300 (300ng/ml); URINE OPIATES < 300 (300ng/ml)
[2022-04-19 18:42] LABS: URINE PHENCYCLIDINE < 25 (25ng/ml)
[2022-04-19 19:15] VITALS: BP 144/91
[2022-04-19 21:56] VITALS: BP 150/100
[2022-04-19 23:40] VITALS: BP 124/58
[2022-04-20 05:32] LABS: ALKALINE PHOSPHATASE 108 U/L (45-117); BUN 5 mg/dl (7-24); CHLORIDE 108 mmol/L (98-107); CREATININE 0.57 mg/dL (0.70-1.30); FREE T4 0.75 ng/dl (0.76-1.46); POTASSIUM 3.9 mmol/L (3.5-5.1); SGOT/AST 152 IU/L (3-35); SGPT/ALT 137 U/L (12-78); SODIUM 137 mmol/L (136-145); TOTAL PROTEIN 6.1 gm/dL (6.4-8.2)
[2022-04-20 06:45] LABS: HEMATOCRIT 40.3 % (42.0-52.0); MEAN CELL VOLUME 94.4 fl (80.0-94.0); MEAN CORPUSCULAR HGB 32.6 pg (27.0-31.0); MEAN CORPUSCULAR HGB CONC 34.5 g/dl (33.0-37.0); MEAN PLATELET VOLUME 12.9 fl (9.6-12.3); RED BLOOD COUNT 4.27 10*6/uL (4.50-5.90); WHITE BLOOD COUNT 3.5 10*3/uL (4.8-10.8)
[2022-04-20 06:47] LABS: MANUAL DIFF REFLEX YES
[2022-04-20 06:49] LABS: PLATELET COUNT AUTOMATED 27 10*3/uL (130-400)
[2022-04-20 07:33] LABS: ATYPICAL LYMPHS 1 % (0-0); TOTAL CELLS COUNTED 100 #CELLS
[2022-04-20 07:34] LABS: PLATELET SUFFICIENCY LOW (NORMAL); POLYCHROMASIA SLIGHT
[2022-04-20 08:00] VITALS: BP 113/51; BP 113/78
[2022-04-20 08:49] LABS: VITAMIN D, 25-HYDROXY 18.5 ng/mL (30-100)
[2022-04-20 12:00] VITALS: BP 145/90
[2022-04-20 16:00] VITALS: BP 140/84
[2022-04-20 20:00] VITALS: BP 107/70
[2022-04-21] VITALS: BP 124/79
[2022-04-21 05:42] LABS: BUN 8 mg/dl (7-24); CHLORIDE 107 mmol/L (98-107); CREATININE 0.72 mg/dL (0.70-1.30); IRON 45 ug/dL (65-175); LDH 127 U/L (87-241); POTASSIUM 3.1 mmol/L (3.5-5.1); SGOT/AST 71 IU/L (3-35); SGPT/ALT 98 U/L (12-78); SODIUM 140 mmol/L (136-145)
[2022-04-21 05:45] LABS: ALKALINE PHOSPHATASE 137 U/L (45-117); TOTAL PROTEIN 5.7 gm/dL (6.4-8.2)
[2022-04-21 06:19] LABS: HEMATOCRIT 38.6 % (42.0-52.0); MEAN CELL VOLUME 96.7 fl (80.0-94.0); MEAN CORPUSCULAR HGB 32.6 pg (27.0-31.0); MEAN CORPUSCULAR HGB CONC 33.7 g/dl (33.0-37.0); MEAN PLATELET VOLUME 13.6 fl (9.6-12.3); RED BLOOD COUNT 3.99 10*6/uL (4.50-5.90); RED CELL DISTRI WIDTH 12.9 % (0-14.5); WHITE BLOOD COUNT 4.9 10*3/uL (4.8-10.8)
[2022-04-21 06:20] LABS: MANUAL DIFF REFLEX YES
[2022-04-21 06:24] LABS: PLATELET COUNT AUTOMATED 21 10*3/uL (130-400)
[2022-04-21 06:31] LABS: ATYPICAL LYMPHS 2 % (0-0); BASOPHILS 2 % (0-1); BURR CELLS FEW; POLYCHROMASIA SLIGHT; TOTAL CELLS COUNTED 100 #CELLS
[2022-04-21 06:32] LABS: PLATELET SUFFICIENCY LOW (NORMAL); ROULEAUX SLIGHT
[2022-04-21 08:00] VITALS: BP 116/76
[2022-04-21 12:00] VITALS: BP 118/71
[2022-04-21 16:00] VITALS: BP 145/87
[2022-04-21 18:28] LABS: HEMATOCRIT 42.7 % (42.0-52.0); MEAN CELL VOLUME 96.6 fl (80.0-94.0); MEAN CORPUSCULAR HGB 32.4 pg (27.0-31.0); MEAN CORPUSCULAR HGB CONC 33.5 g/dl (33.0-37.0); RED BLOOD COUNT 4.42 10*6/uL (4.50-5.90); RED CELL DISTRI WIDTH 12.8 % (0-14.5); WHITE BLOOD COUNT 5.7 10*3/uL (4.8-10.8)
[2022-04-21 18:48] LABS: MANUAL DIFF REFLEX YES
[2022-04-21 19:02] LABS: ATYPICAL LYMPHS 4 % (0-0); TOTAL CELLS COUNTED 100 #CELLS
[2022-04-21 19:03] LABS: BURR CELLS FEW; PLATELET SUFFICIENCY LOW (NORMAL); POLYCHROMASIA SLIGHT; ROULEAUX SLIGHT
[2022-04-21 19:14] LABS: PLATELET COUNT AUTOMATED 26 10*3/uL (130-400)
[2022-04-21 20:00] VITALS: BP 118/78
[2022-04-21 23:36] VITALS: BP 136/87
[2022-04-22 05:37] LABS: ALKALINE PHOSPHATASE 142 U/L (45-117); BUN 10 mg/dl (7-24); CHLORIDE 105 mmol/L (98-107); CREATININE 0.65 mg/dL (0.70-1.30); POTASSIUM 3.8 mmol/L (3.5-5.1); SGOT/AST 87 IU/L (3-35); SGPT/ALT 125 U/L (12-78); SODIUM 135 mmol/L (136-145); TOTAL PROTEIN 6.9 gm/dL (6.4-8.2)
[2022-04-22 06:12] LABS: MEAN CELL VOLUME 96.8 fl (80.0-94.0); MEAN CORPUSCULAR HGB CONC 33.1 g/dl (33.0-37.0); MEAN PLATELET VOLUME 13.5 fl (9.6-12.3); RED BLOOD COUNT 4.34 10*6/uL (4.50-5.90); RED CELL DISTRI WIDTH 12.7 % (0-14.5); WHITE BLOOD COUNT 5.9 10*3/uL (4.8-10.8)
[2022-04-22 06:36] LABS: MANUAL DIFF REFLEX YES; PLATELET COUNT AUTOMATED 26 10*3/uL (130-400)
[2022-04-22 07:28] LABS: ATYPICAL LYMPHS 1 % (0-0); BASOPHILS 1 % (0-1); PLATELET SUFFICIENCY LOW (NORMAL); TOTAL CELLS COUNTED 100 #CELLS
[2022-04-22 08:00] VITALS: BP 157/105
[2022-04-22 12:00] VITALS: BP 104/64
[2022-04-22 16:00] VITALS: BP 104/67
[2022-04-22 20:00] VITALS: BP 129/90
[2022-04-23] VITALS: BP 147/95
[2022-04-23 06:50] LABS: HEMATOCRIT 37.2 % (42.0-52.0); MEAN CELL VOLUME 98.9 fl (80.0-94.0); MEAN CORPUSCULAR HGB 32.7 pg (27.0-31.0); MEAN CORPUSCULAR HGB CONC 33.1 g/dl (33.0-37.0); MEAN PLATELET VOLUME 13.1 fl (9.6-12.3); PLATELET COUNT AUTOMATED 30 10*3/uL (130-400); RED BLOOD COUNT 3.76 10*6/uL (4.50-5.90); WHITE BLOOD COUNT 6.3 10*3/uL (4.8-10.8)
[2022-04-23 06:53] LABS: MANUAL DIFF REFLEX YES
[2022-04-23 07:05] LABS: ALKALINE PHOSPHATASE 132 U/L (45-117); BUN 16 mg/dl (7-24); CHLORIDE 106 mmol/L (98-107); POTASSIUM 3.6 mmol/L (3.5-5.1); SGOT/AST 66 IU/L (3-35); SGPT/ALT 109 U/L (12-78); SODIUM 138 mmol/L (136-145); TOTAL PROTEIN 6.1 gm/dL (6.4-8.2)
[2022-04-23 07:33] LABS: ATYPICAL LYMPHS 2 % (0-0); BASOPHILS 1 % (0-1); PLATELET SUFFICIENCY LOW (NORMAL); TOTAL CELLS COUNTED 100 #CELLS
[2022-04-23 08:00] VITALS: BP 152/100
[2022-04-23 12:00] VITALS: BP 138/85
[2022-04-23 16:00] VITALS: BP 136/88
[2022-04-23 20:00] VITALS: BP 120/83
[2022-04-24] VITALS: BP 131/87
[2022-04-24 06:31] LABS: ALKALINE PHOSPHATASE 122 U/L (45-117); BUN 16 mg/dl (7-24); CHLORIDE 109 mmol/L (98-107); CREATININE 0.68 mg/dL (0.70-1.30); POTASSIUM 3.8 mmol/L (3.5-5.1); SGOT/AST 62 IU/L (3-35); SGPT/ALT 113 U/L (12-78); SODIUM 138 mmol/L (136-145); TOTAL PROTEIN 6.4 gm/dL (6.4-8.2)
[2022-04-24 06:33] LABS: HEMATOCRIT 38.6 % (42.0-52.0); MEAN CELL VOLUME 98.2 fl (80.0-94.0); MEAN CORPUSCULAR HGB 32.3 pg (27.0-31.0); MEAN CORPUSCULAR HGB CONC 32.9 g/dl (33.0-37.0); MEAN PLATELET VOLUME 12.1 fl (9.6-12.3); RED BLOOD COUNT 3.93 10*6/uL (4.50-5.90); RED CELL DISTRI WIDTH 12.8 % (0-14.5); WHITE BLOOD COUNT 6.5 10*3/uL (4.8-10.8)
[2022-04-24 06:36] LABS: MANUAL DIFF REFLEX YES; PLATELET COUNT AUTOMATED 49 10*3/uL (130-400)
[2022-04-24 07:43] LABS: PLATELET SUFFICIENCY LOW (NORMAL); TOTAL CELLS COUNTED 100 #CELLS
[2022-04-24 08:00] VITALS: BP 132/87
[2022-04-24 12:00] VITALS: BP 138/88
[2022-04-24 16:00] VITALS: BP 148/93
[2022-04-24 20:00] VITALS: BP 132/85
[2022-04-25] VITALS: BP 147/100
[2022-04-25 07:15] LABS: BASO # 0.1 10*3/uL (0.0-0.1); BASO % 0.8 % (0.0-1.0); EOS # 0.1 10*3/uL (0.0-0.4); EOS % 2.1 % (1.0-4.0); HEMATOCRIT 37.8 % (42.0-52.0); LYMPH # 2.8 10*3/uL (1.3-4.4); LYMPH % 42.5 % (27.0-41.0); MEAN CORPUSCULAR HGB 33.1 pg (27.0-31.0); MEAN CORPUSCULAR HGB CONC 33.1 g/dl (33.0-37.0); MEAN PLATELET VOLUME 12.2 fl (9.6-12.3); MONO % 14.5 % (3.0-9.0); NEUT # 2.6 10*3/uL (2.3-7.9); NEUT % 39.6 % (47.0-73.0); PLATELET COUNT AUTOMATED 60 10*3/uL (130-400); RED BLOOD COUNT 3.78 10*6/uL (4.50-5.90); RED CELL DISTRI WIDTH 13.1 % (0-14.5); WHITE BLOOD COUNT 6.5 10*3/uL (4.8-10.8)
[2022-04-25 07:35] LABS: BUN 18 mg/dl (7-24); CHLORIDE 108 mmol/L (98-107); CREATININE 0.67 mg/dL (0.70-1.30); POTASSIUM 3.9 mmol/L (3.5-5.1); SGOT/AST 50 IU/L (3-35); SGPT/ALT 109 U/L (12-78); SODIUM 138 mmol/L (136-145)
[2022-04-25 07:36] LABS: ALKALINE PHOSPHATASE 100 U/L (45-117); TOTAL PROTEIN 6.2 gm/dL (6.4-8.2)
[2022-04-25 08:00] VITALS: BP 124/74
[2022-04-25 12:00] VITALS: BP 99/61
== END 2022-04-25 13:20 | disposition home or self-care (01) | DRG 896 ==
LOC: ED 17:23 → EDHOLD 20:03 → 4E 20:03
PROVIDERS: Family Medicine; Internal Medicine; Registered Nurse; Student in an Organized Health Care Education/Training Program; ADMIT Internal Medicine; ATTEND Internal Medicine
DX: F10.229 Alcohol dependence with intoxication, unspecified (principal); G93.41 Metabolic encephalopathy; E87.1 Hypo-osmolality and hyponatremia; J96.10 Chronic respiratory failure, unspecified whether with hypoxia or hypercapnia; D61.818 Other pancytopenia; D69.6 Thrombocytopenia, unspecified; F41.9 Anxiety disorder, unspecified; J44.9 Chronic obstructive pulmonary disease, unspecified; E78.5 Hyperlipidemia, unspecified; I10 Essential (primary) hypertension; R74.01 Elevation of levels of liver transaminase levels; R73.9 Hyperglycemia, unspecified; E55.9 Vitamin D deficiency, unspecified; E87.6 Hypokalemia; Z82.49 Family history of ischemic heart disease and other diseases of the circulatory system; Z99.81 Dependence on supplemental oxygen

== ENCOUNTER 2022-06-05 21:29 | Emergency (ER) | payer OTHER, MEDICAID ==
[~2022-06-05] VITALS: Ht 177.8 cm; Wt 86.2 kg
[2022-06-05 22:18] LABS: BASO # 0.1 10*3/uL (0.0-0.1); BASO % 0.6 % (0.0-1.0); EOS # 0.1 10*3/uL (0.0-0.4); HEMATOCRIT 44.5 % (42.0-52.0); LYMPH # 3.9 10*3/uL (1.3-4.4); LYMPH % 47.3 % (27.0-41.0); MEAN CELL VOLUME 95.7 fl (80.0-94.0); MEAN CORPUSCULAR HGB 32.7 pg (27.0-31.0); MEAN CORPUSCULAR HGB CONC 34.2 g/dl (33.0-37.0); MEAN PLATELET VOLUME 10.9 fl (9.6-12.3); MONO # 0.5 10*3/uL (0.1-1.0); MONO % 5.6 % (3.0-9.0); NEUT # 3.7 10*3/uL (2.3-7.9); NEUT % 45.3 % (47.0-73.0); PLATELET COUNT AUTOMATED 159 10*3/uL (130-400); RED BLOOD COUNT 4.65 10*6/uL (4.50-5.90); RED CELL DISTRI WIDTH 12.5 % (0-14.5); WHITE BLOOD COUNT 8.3 10*3/uL (4.8-10.8)
[2022-06-05 22:37] LABS: ALKALINE PHOSPHATASE 100 U/L (45-117); BUN 5 mg/dl (7-24); CHLORIDE 100 mmol/L (98-107); CREATININE 0.73 mg/dL (0.70-1.30); POTASSIUM 4.2 mmol/L (3.5-5.1); SGOT/AST 82 IU/L (3-35); SGPT/ALT 86 U/L (12-78); SODIUM 134 mmol/L (136-145); TOTAL PROTEIN 6.8 gm/dL (6.4-8.2)
[2022-06-06] MEDS ORDERED: ZITHROMAX250 MG PO (01:03)
[2022-06-06] MEDS ORDERED: PREDNISONE20 M1 PO (01:03)
== END 2022-06-06 12:41 | disposition home or self-care (01) ==
LOC: ED 21:29
PROVIDERS: Emergency Medicine
DX: J44.9 Chronic obstructive pulmonary disease, unspecified (principal); F10.920 Alcohol use, unspecified with intoxication, uncomplicated; Z79.899 Other long term (current) drug therapy; Z87.891 Personal history of nicotine dependence; Y90.9 Presence of alcohol in blood, level not specified

== ENCOUNTER 2022-09-19 05:35 | Inpatient (IN) | payer OTHER, MEDICAID ==
[~2022-09-19] VITALS: Ht 185.4 cm; Wt 69.2 kg
[2022-09-19] VITALS (8 sets, daily range): BP systolic 119–168; BP diastolic 74–94
[~2022-09-19 05:35] MED LIST changes: +LEVOFLOXACIN500 MG PO; +MUCINEX1200 M1 PO; +PROVENTIL HFA6.7 GM INH
[2022-09-19 06:08] LABS: ALKALINE PHOSPHATASE 104 U/L (46-116); CHLORIDE 102 mmol/L (98-107); POTASSIUM 3.9 mmol/L (3.4-5.1); SGPT/ALT 94 U/L (10-49); TOTAL PROTEIN 6.8 gm/dL (6.0-8.0)
[2022-09-19 06:10] LABS: BUN < 5 mg/dl (9-23)
[2022-09-19 06:39] LABS: BILIRUBIN Negative (Negative); BLOOD Negative (Negative); CLARITY Clear (Clear); COLOR Yellow (Yellow); GLUCOSE Negative (Negative); KETONE Trace (Negative); LEUKO ESTERASE Negative (Negative); NITRITE Negative (Negative); PH 6.5 (4.5-8.0)
[2022-09-19 06:51] LABS: HEMATOCRIT 43.8 % (42.0-52.0); MEAN CELL VOLUME 94.4 fl (80.0-94.0); MEAN CORPUSCULAR HGB 32.3 pg (27.0-31.0); MEAN CORPUSCULAR HGB CONC 34.2 g/dl (33.0-37.0); RED BLOOD COUNT 4.64 10*6/uL (4.50-5.90); RED CELL DISTRI WIDTH 14.4 % (0-14.5); WHITE BLOOD COUNT 9.3 10*3/uL (4.8-10.8)
[2022-09-19 06:56] LABS: MANUAL DIFF REFLEX YES
[2022-09-19 06:58] LABS: PLATELET COUNT AUTOMATED 27 10*3/uL (130-400)
[2022-09-19 06:59] LABS: TOTAL CELLS COUNTED 100 #CELLS
[2022-09-19 07:00] LABS: PLATELET SUFFICIENCY LOW (NORMAL); POLYCHROMASIA SLIGHT
[2022-09-19 07:57] LABS: URINE AMPHETAMINES Negative (1000ng/ml); URINE BARBITURATES Negative (200ng/ml); URINE BENZODIAZEPINES Negative (200ng/ml); URINE CANNABINOIDS (THC) Negative (50ng/ml); URINE COCAINE Negative (300ng/ml); URINE METHADONE Negative (300ng/ml); URINE OPIATES Negative (300ng/ml); URINE PHENCYCLIDINE Negative (25ng/ml)
[2022-09-20] VITALS (26 sets, daily range): BP systolic 115–162; BP diastolic 65–100
[2022-09-20 05:44] LABS: ALKALINE PHOSPHATASE 91 U/L (46-116); BUN 7 mg/dl (9-23); CHLORIDE 107 mmol/L (98-107); FREE T4 0.93 ng/dl (0.89-1.76); POTASSIUM 3.6 mmol/L (3.4-5.1); SGPT/ALT 66 U/L (10-49); THYROID STIM HORMONE (HS) 0.682 uIU/ml (0.550-4.780); TOTAL PROTEIN 5.9 gm/dL (6.0-8.0)
[2022-09-20 06:37] LABS: HEMATOCRIT 41.5 % (42.0-52.0); MEAN CORPUSCULAR HGB 32.1 pg (27.0-31.0); MEAN CORPUSCULAR HGB CONC 32.5 g/dl (33.0-37.0); MEAN PLATELET VOLUME 13.6 fl (9.6-12.3); RED BLOOD COUNT 4.21 10*6/uL (4.50-5.90); RED CELL DISTRI WIDTH 14.3 % (0-14.5)
[2022-09-20 06:38] LABS: MANUAL DIFF REFLEX YES; MEAN CELL VOLUME 98.6 fl (80.0-94.0)
[2022-09-20 06:39] LABS: PLATELET COUNT AUTOMATED 16 10*3/uL (130-400)
[2022-09-20 07:07] LABS: VITAMIN D, 25-HYDROXY 32.5 ng/mL (30-100)
[2022-09-20 07:32] LABS: TOTAL CELLS COUNTED 100 #CELLS
[2022-09-20 07:33] LABS: BURR CELLS FEW; OVALOCYTES FEW; PLATELET SUFFICIENCY LOW (NORMAL); POLYCHROMASIA SLIGHT; TOXIC GRANULATION SLIGHT; VACUOLATION OF NEUTROPHILS SLIGHT
[2022-09-20 19:48] LABS: HEMATOCRIT 40.8 % (42.0-52.0); MANUAL DIFF REFLEX YES; MEAN CELL VOLUME 96.2 fl (80.0-94.0); MEAN CORPUSCULAR HGB 32.3 pg (27.0-31.0); MEAN CORPUSCULAR HGB CONC 33.6 g/dl (33.0-37.0); MEAN PLATELET VOLUME 10.7 fl (9.6-12.3); RED BLOOD COUNT 4.24 10*6/uL (4.50-5.90); RED CELL DISTRI WIDTH 13.9 % (0-14.5); WHITE BLOOD COUNT 4.6 10*3/uL (4.8-10.8)
[2022-09-20 19:49] LABS: PLATELET COUNT AUTOMATED 51 10*3/uL (130-400)
[2022-09-20 20:19] LABS: TOTAL CELLS COUNTED 100 #CELLS
[2022-09-20 20:20] LABS: OVALOCYTES FEW; SPHEROCYTES FEW; STOMATOCYTE FEW
[2022-09-20 20:21] LABS: PLATELET SUFFICIENCY LOW (NORMAL)
[2022-09-20 20:22] LABS: ATYPICAL LYMPHS 1 % (0-0)
[2022-09-21] VITALS (13 sets, daily range): BP systolic 92–165; BP diastolic 60–99
[2022-09-21 06:07] LABS: ALKALINE PHOSPHATASE 103 U/L (46-116); BUN 7 mg/dl (9-23); CHLORIDE 103 mmol/L (98-107); POTASSIUM 3.5 mmol/L (3.4-5.1); SGPT/ALT 68 U/L (10-49); TOTAL PROTEIN 6.5 gm/dL (6.0-8.0)
[2022-09-21 06:37] LABS: HEMATOCRIT 44.3 % (42.0-52.0); MEAN CELL VOLUME 95.3 fl (80.0-94.0); MEAN CORPUSCULAR HGB 32.5 pg (27.0-31.0); MEAN CORPUSCULAR HGB CONC 34.1 g/dl (33.0-37.0); MEAN PLATELET VOLUME 10.9 fl (9.6-12.3); PLATELET COUNT AUTOMATED 50 10*3/uL (130-400); RED BLOOD COUNT 4.65 10*6/uL (4.50-5.90); RED CELL DISTRI WIDTH 13.7 % (0-14.5); WHITE BLOOD COUNT 5.6 10*3/uL (4.8-10.8)
[2022-09-21 06:42] LABS: MANUAL DIFF REFLEX YES
[2022-09-21 07:10] LABS: MICROCYTOSIS SLIGHT; PLATELET SUFFICIENCY LOW (NORMAL); POLYCHROMASIA SLIGHT; TOTAL CELLS COUNTED 100 #CELLS
[2022-09-22] VITALS (12 sets, daily range): BP systolic 94–170; BP diastolic 64–104
[2022-09-22 05:40] LABS: BUN 10 mg/dl (9-23); CHLORIDE 105 mmol/L (98-107); POTASSIUM 3.7 mmol/L (3.4-5.1)
[2022-09-22 06:28] LABS: BASO % 0.1 % (0.0-1.0); EOS # 0.1 10*3/uL (0.0-0.4); EOS % 1.1 % (1.0-4.0); HEMATOCRIT 43.7 % (42.0-52.0); LYMPH # 1.7 10*3/uL (1.3-4.4); MEAN CELL VOLUME 96.7 fl (80.0-94.0); MEAN CORPUSCULAR HGB 32.5 pg (27.0-31.0); MEAN CORPUSCULAR HGB CONC 33.6 g/dl (33.0-37.0); MEAN PLATELET VOLUME 12.3 fl (9.6-12.3); MONO # 0.7 10*3/uL (0.1-1.0); MONO % 9.7 % (3.0-9.0); NEUT # 4.7 10*3/uL (2.3-7.9); PLATELET COUNT AUTOMATED 53 10*3/uL (130-400); RED BLOOD COUNT 4.52 10*6/uL (4.50-5.90); RED CELL DISTRI WIDTH 14.2 % (0-14.5); WHITE BLOOD COUNT 7.2 10*3/uL (4.8-10.8)
[2022-09-23] VITALS (11 sets, daily range): BP systolic 40–170; BP diastolic 0–104
[2022-09-23 05:06] LABS: HBSAG Negative (Negative); HEP B CORE AB, IGM Negative (Negative); HEPATITIS C ANTIBODY <0.1 (0.0-0.9)
[2022-09-23 05:36] LABS: ALKALINE PHOSPHATASE 74 U/L (46-116); BUN 8 mg/dl (9-23); CHLORIDE 104 mmol/L (98-107); POTASSIUM 3.7 mmol/L (3.4-5.1); SGPT/ALT 82 U/L (10-49); TOTAL PROTEIN 6.1 gm/dL (6.0-8.0)
[2022-09-23 06:24] LABS: BASO % 0.1 % (0.0-1.0); EOS # 0.1 10*3/uL (0.0-0.4); EOS % 0.7 % (1.0-4.0); HEMATOCRIT 44.2 % (42.0-52.0); LYMPH # 1.8 10*3/uL (1.3-4.4); LYMPH % 27.1 % (27.0-41.0); MEAN CELL VOLUME 96.7 fl (80.0-94.0); MEAN CORPUSCULAR HGB 32.2 pg (27.0-31.0); MEAN CORPUSCULAR HGB CONC 33.3 g/dl (33.0-37.0); MEAN PLATELET VOLUME 12.3 fl (9.6-12.3); MONO # 0.9 10*3/uL (0.1-1.0); MONO % 13.6 % (3.0-9.0); NEUT # 3.9 10*3/uL (2.3-7.9); NEUT % 58.1 % (47.0-73.0); PLATELET COUNT AUTOMATED 58 10*3/uL (130-400); RED BLOOD COUNT 4.57 10*6/uL (4.50-5.90); WHITE BLOOD COUNT 6.7 10*3/uL (4.8-10.8)
[2022-09-24 02:00] VITALS: BP 156/86
[2022-09-24 04:37] VITALS: BP 119/75
[2022-09-24 06:21] LABS: BASO % 0.3 % (0.0-1.0); EOS # 0.1 10*3/uL (0.0-0.4); EOS % 0.9 % (1.0-4.0); HEMATOCRIT 41.6 % (42.0-52.0); LYMPH # 2.2 10*3/uL (1.3-4.4); LYMPH % 32.9 % (27.0-41.0); MEAN CELL VOLUME 97.2 fl (80.0-94.0); MEAN CORPUSCULAR HGB 32.7 pg (27.0-31.0); MEAN CORPUSCULAR HGB CONC 33.7 g/dl (33.0-37.0); MONO % 14.3 % (3.0-9.0); NEUT # 3.5 10*3/uL (2.3-7.9); NEUT % 51.2 % (47.0-73.0); PLATELET COUNT AUTOMATED 73 10*3/uL (130-400); RED BLOOD COUNT 4.28 10*6/uL (4.50-5.90); RED CELL DISTRI WIDTH 13.9 % (0-14.5); WHITE BLOOD COUNT 6.8 10*3/uL (4.8-10.8)
[2022-09-24 07:23] LABS: BUN 15 mg/dl (9-23); CHLORIDE 104 mmol/L (98-107); POTASSIUM 3.8 mmol/L (3.4-5.1)
[2022-09-24 08:00] VITALS: BP 148/92
[2022-09-24 12:00] VITALS: BP 153/89
[2022-09-24 16:00] VITALS: BP 112/72
[2022-09-24 20:00] VITALS: BP 142/84
[2022-09-25] VITALS: BP 136/88
[2022-09-25 04:00] VITALS: BP 146/80
[2022-09-25 06:53] LABS: BASO % 0.4 % (0.0-1.0); EOS # 0.1 10*3/uL (0.0-0.4); EOS % 1.2 % (1.0-4.0); HEMATOCRIT 37.8 % (42.0-52.0); LYMPH # 2.7 10*3/uL (1.3-4.4); LYMPH % 36.3 % (27.0-41.0); MEAN CELL VOLUME 98.2 fl (80.0-94.0); MEAN CORPUSCULAR HGB CONC 33.6 g/dl (33.0-37.0); MEAN PLATELET VOLUME 11.7 fl (9.6-12.3); MONO # 1.2 10*3/uL (0.1-1.0); MONO % 15.9 % (3.0-9.0); NEUT # 3.4 10*3/uL (2.3-7.9); NEUT % 45.4 % (47.0-73.0); PLATELET COUNT AUTOMATED 85 10*3/uL (130-400); RED BLOOD COUNT 3.85 10*6/uL (4.50-5.90); RED CELL DISTRI WIDTH 13.9 % (0-14.5); WHITE BLOOD COUNT 7.5 10*3/uL (4.8-10.8)
[2022-09-25 08:00] VITALS: BP 133/92
[2022-09-25 08:55] LABS: BUN 14 mg/dl (9-23); CHLORIDE 104 mmol/L (98-107)
[2022-09-25 12:00] VITALS: BP 122/74
[2022-09-25 16:00] VITALS: BP 117/75
[2022-09-25 20:00] VITALS: BP 162/97
[2022-09-26] VITALS: BP 158/96
[2022-09-26 04:00] VITALS: BP 146/94
[2022-09-26 04:38] LABS: MEAN CELL VOLUME 98.3 fl (80.0-94.0); MEAN CORPUSCULAR HGB 32.1 pg (27.0-31.0); MEAN CORPUSCULAR HGB CONC 32.7 g/dl (33.0-37.0); MEAN PLATELET VOLUME 11.2 fl (9.6-12.3); RED BLOOD COUNT 4.17 10*6/uL (4.50-5.90); WHITE BLOOD COUNT 8.8 10*3/uL (4.8-10.8)
[2022-09-26 04:54] LABS: MANUAL DIFF REFLEX YES; PLATELET COUNT AUTOMATED 122 10*3/uL (130-400)
[2022-09-26 05:07] LABS: ALKALINE PHOSPHATASE 74 U/L (46-116); ATYPICAL LYMPHS 1 % (0-0); BASOPHILS 1 % (0-1); BUN 19 mg/dl (9-23); CHLORIDE 104 mmol/L (98-107); PLATELET SUFFICIENCY LOW (NORMAL); POTASSIUM 4.5 mmol/L (3.4-5.1); SGPT/ALT 70 U/L (10-49); TOTAL CELLS COUNTED 100 #CELLS; TOTAL PROTEIN 6.3 gm/dL (6.0-8.0)
[2022-09-26 08:00] VITALS: BP 153/92
[2022-09-26 11:36] VITALS: BP 150/88
[2022-09-26 16:00] VITALS: BP 152/84
[2022-09-26 20:00] VITALS: BP 118/80
[2022-09-27] VITALS: BP 154/89
[2022-09-27 05:48] LABS: ALKALINE PHOSPHATASE 77 U/L (46-116); BUN 22 mg/dl (9-23); CHLORIDE 103 mmol/L (98-107); POTASSIUM 4.2 mmol/L (3.4-5.1); SGPT/ALT 60 U/L (10-49); TOTAL PROTEIN 6.4 gm/dL (6.0-8.0)
[2022-09-27 06:23] LABS: HEMATOCRIT 41.3 % (42.0-52.0); MEAN CELL VOLUME 97.2 fl (80.0-94.0); MEAN CORPUSCULAR HGB 32.5 pg (27.0-31.0); MEAN CORPUSCULAR HGB CONC 33.4 g/dl (33.0-37.0); MEAN PLATELET VOLUME 11.4 fl (9.6-12.3); PLATELET COUNT AUTOMATED 153 10*3/uL (130-400); RED BLOOD COUNT 4.25 10*6/uL (4.50-5.90); WHITE BLOOD COUNT 9.4 10*3/uL (4.8-10.8)
[2022-09-27 06:24] LABS: MANUAL DIFF REFLEX YES
[2022-09-27 07:13] LABS: BASOPHILS 2 % (0-1); OVALOCYTES FEW; PLATELET SUFFICIENCY NORMAL (NORMAL); POLYCHROMASIA SLIGHT; TOTAL CELLS COUNTED 100 #CELLS
[2022-09-27 08:00] VITALS: BP 118/72
[2022-09-27] MEDS ORDERED: NATURE'S BLEND F1 MG PO (10:28)
[2022-09-27] MEDS ORDERED: VITAMIN B-1100 M1 PO (10:28)
[2022-09-27] MEDS ORDERED: LISINOPRIL10 M1 PO (10:28)
[2022-09-27] MEDS ORDERED: PREDNISONE10 MG PO (11:02)
[2022-09-27] MEDS ORDERED: NICODERM CQ1 EAC2 T (11:13)
[2022-09-27 12:00] VITALS: BP 125/80
== END 2022-09-27 13:58 | DRG 896 ==
LOC: ED 05:35 → 4E 08:18 → ICCU 08:18 → EDHOLD 08:18 → 4E 12:48 → ICCU 20:03 → 4E 09-26 17:49
PROVIDERS: Emergency Medicine; Internal Medicine; Student in an Organized Health Care Education/Training Program; ADMIT Emergency Medicine; ATTEND Emergency Medicine
PROC: 30233R1 Transfusion of Nonautologous Platelets into Peripheral Vein, Percutaneous Approach (ICD-10-PCS; principal; 2022-09-20)
DX: F10.131 Alcohol abuse with withdrawal delirium (principal); J96.00 Acute respiratory failure, unspecified whether with hypoxia or hypercapnia; R65.11 Systemic inflammatory response syndrome (SIRS) of non-infectious origin with acute organ dysfunction; E72.20 Disorder of urea cycle metabolism, unspecified; Y90.9 Presence of alcohol in blood, level not specified; J43.9 Emphysema, unspecified; K76.82 Hepatic encephalopathy; Z20.822 Contact with and (suspected) exposure to COVID-19; D69.6 Thrombocytopenia, unspecified; R73.9 Hyperglycemia, unspecified; R74.01 Elevation of levels of liver transaminase levels; I10 Essential (primary) hypertension; E78.5 Hyperlipidemia, unspecified; F41.9 Anxiety disorder, unspecified; Z71.6 Tobacco abuse counseling; Z79.51 Long term (current) use of inhaled steroids; Z79.2 Long term (current) use of antibiotics; Z79.899 Other long term (current) drug therapy; Z82.49 Family history of ischemic heart disease and other diseases of the circulatory system

== ENCOUNTER 2024-01-24 03:48 | Emergency (ER) | payer OTHER, MEDICAID ==
[~2024-01-24] VITALS: Ht 187.9 cm; Wt 67.1 kg
[~2024-01-24 03:48] MED LIST changes: +LISINOPRIL10 M1 PO; +NATURE'S BLEND F1 MG PO; +NICODERM CQ1 EAC2 T; +VITAMIN B-1100 M1 PO
[2024-01-24 04:20] LABS: BASO % 0.7 % (0.0-1.0); EOS # 0.1 10*3/uL (0.0-0.4); EOS % 0.8 % (1.0-4.0); HEMATOCRIT 39.2 % (42.0-52.0); LYMPH # 1.7 10*3/uL (1.3-4.4); LYMPH % 27.5 % (27.0-41.0); MEAN CELL VOLUME 92.5 fl (80.0-94.0); MEAN CORPUSCULAR HGB 32.3 pg (27.0-31.0); MEAN CORPUSCULAR HGB CONC 34.9 g/dl (33.0-37.0); MEAN PLATELET VOLUME 10.8 fl (9.6-12.3); MONO # 0.7 10*3/uL (0.1-1.0); MONO % 11.3 % (3.0-9.0); NEUT # 3.7 10*3/uL (2.3-7.9); NEUT % 59.5 % (47.0-73.0); PLATELET COUNT AUTOMATED 81 10*3/uL (130-400); RED BLOOD COUNT 4.24 10*6/uL (4.50-5.90); RED CELL DISTRI WIDTH 13.2 % (0-14.5); WHITE BLOOD COUNT 6.1 10*3/uL (4.8-10.8)
[2024-01-24 04:57] LABS: ALKALINE PHOSPHATASE 120 U/L (46-116); CHLORIDE 98 mmol/L (98-107); SGPT/ALT 81 U/L (5-49); TOTAL PROTEIN 6.9 gm/dL (6.0-8.0)
[2024-01-24 05:04] LABS: BUN < 5 mg/dl (9-23)
[2024-01-24] MEDS ORDERED: LORazepam 1 MG TAB PO ONE (05:10)
[2024-01-24] MEDS ORDERED: SODIUM CHLORIDE 0.9% 1,000 ML IV ONE (05:25)
[2024-01-24] MEDS ORDERED: Thiamine 200 MG/2 ML VIAL IV ONE (05:30)
[2024-01-24] MEDS ORDERED: DIAZEPAM 10 MG/2 ML SYR IV ONE (05:40)
[2024-01-24] MEDS ORDERED: Albuterol Sulf/Ipratropium 3 ML VIAL NEB ONE (08:40)
[2024-01-24] MEDS ORDERED: ATROVENT HFA12.9 GM INH (10:28)
[2024-01-24] MEDS ORDERED: VENT7GM INH (10:29)
[2024-01-24] MEDS ORDERED: LORazepam 2 MG TAB PO ONE (10:55)
== END 2024-01-24 17:40 | disposition home or self-care (01) ==
LOC: ED 03:48
PROVIDERS: Internal Medicine
DX: R06.02 Shortness of breath (principal); F32.A Depression, unspecified; J44.9 Chronic obstructive pulmonary disease, unspecified; I10 Essential (primary) hypertension; F41.9 Anxiety disorder, unspecified; E78.00 Pure hypercholesterolemia, unspecified; E11.40 Type 2 diabetes mellitus with diabetic neuropathy, unspecified; F17.200 Nicotine dependence, unspecified, uncomplicated; F10.10 Alcohol abuse, uncomplicated; Z98.890 Other specified postprocedural states

== ENCOUNTER 2024-07-10 12:40 | Observation (INO) | payer OTHER, MEDICAID ==
[~2024-07-10] VITALS: Ht 182.9 cm; Wt 67.3 kg
[~2024-07-10 12:40] MED LIST changes: +ATROVENT HFA12.9 GM INH; +BUDESONIDE-FO10.2 G1 INH; +BUPROPION HYDR100 M3 PO; +MULTIPLE VITAM1 EAC1 PO; +NALTREXONE50 MG PO; +THIAMINE HCL100 MG PO; +VENT7GM INH; +ZESTRIL10 MG PO
[2024-07-10 12:49] VITALS: BP 134/77
[2024-07-10 13:07] LABS: HEMATOCRIT 40.3 % (42.0-52.0); MEAN CORPUSCULAR HGB 32.8 pg (27.0-31.0); MEAN CORPUSCULAR HGB CONC 31.5 g/dl (33.0-37.0); MEAN PLATELET VOLUME 10.6 fl (9.6-12.3); RED BLOOD COUNT 3.87 10*6/uL (4.50-5.90); RED CELL DISTRI WIDTH 13.5 % (0-14.5); WHITE BLOOD COUNT 11.2 10*3/uL (4.8-10.8)
[2024-07-10 13:11] LABS: MANUAL DIFF REFLEX YES
[2024-07-10 13:12] LABS: MEAN CELL VOLUME 104.1 fl (80.0-94.0); PLATELET COUNT AUTOMATED 175 10*3/uL (130-400)
[2024-07-10 13:13] LABS: ACT PARTIAL THROMBO TIME 27.1 SECONDS (20.0-32.1)
[2024-07-10 13:22] LABS: ALKALINE PHOSPHATASE 104 U/L (46-116); BUN 23 mg/dl (9-23); CHLORIDE 101 mmol/L (98-107); LIPASE 46 U/L (12-53); POTASSIUM 4.3 mmol/L (3.4-5.1); SGPT/ALT 58 U/L (5-49); TOTAL PROTEIN 6.3 gm/dL (6.0-8.0)
[2024-07-10 13:24] LABS: ATYPICAL LYMPHS 1 % (0-0); POLYCHROMASIA SLIGHT; TOTAL CELLS COUNTED 100 #CELLS; TOXIC GRANULATION SLIGHT; VACUOLATION OF NEUTROPHILS SLIGHT
[2024-07-10 13:25] LABS: OVALOCYTES FEW; PLATELET SUFFICIENCY NORMAL (NORMAL)
[2024-07-10] MEDS ORDERED: NITROGLYCERIN 1 IN PACKET T ONE (13:25)
[2024-07-10] MEDS ORDERED: ASPIRIN, CHEWABLE 81 MG TAB PO ONE (13:25)
[2024-07-10 13:43] LABS: BILIRUBIN Negative (Negative); BLOOD Negative (Negative); CLARITY Clear (Clear); COLOR Yellow (Yellow); GLUCOSE 2+ (Negative); KETONE Negative (Negative); LEUKO ESTERASE Negative (Negative); NITRITE Negative (Negative); PH 5.5 (4.5-8.0); UROBILINOGEN 0.2 E.U./dl (0.0-1.0)
[2024-07-10 15:19] VITALS: BP 132/74
[2024-07-10] MEDS ORDERED: Albuterol Sulfate 2.5 MG/3 ML VIAL NEB ONE (16:20)
[2024-07-10] MEDS ORDERED: Pantoprazole Sodium 40 MG TAB PO PRN (16:55)
[2024-07-10] MEDS ORDERED: ACETAMINOPHEN 325 MG TAB PO PRN (16:55)
[2024-07-10] MEDS ORDERED: ACETAMINOPHEN 650 MG SUPP R PRN (16:55)
[2024-07-10] MEDS ORDERED: BISACODYL 5 MG TAB PO PRN (16:55)
[2024-07-10] MEDS ORDERED: Acetaminophen/Hydrocodone 5 MG/325 MG TABLET PO PRN (16:55)
[2024-07-10] MEDS ORDERED: Ondansetron Hydrochloride 4 MG/2 ML VIAL IV PRN (16:55)
[2024-07-10] MEDS ORDERED: Magnesium Hydroxide 30 ML UDC PO PRN (16:55)
[2024-07-10] MEDS ORDERED: TEMAZEPAM 15 MG CAP PO PRN (16:55)
[2024-07-10] MEDS ORDERED: BISACODYL 10 MG SUPP R PRN (16:55)
[2024-07-10] MEDS ORDERED: MORPHINE Sulfate 2 MG/ML SYR IV PRN (16:55)
[2024-07-10] MEDS ORDERED: FOLIC ACID 1 MG TAB PO ONE (17:00)
[2024-07-10] MEDS ORDERED: Water, Sterile 10 ML VIAL IV PRN (17:00)
[2024-07-10] MEDS ORDERED: MULTIVITAMIN CONCENTRATE (IV) 10 ML,Thiamine 100 MG,FOLIC ACID 1 MG in SODIUM CHLORIDE ... IV ONE (17:00)
[2024-07-10] MEDS ORDERED: hydrOXYzine 50 MG CAP PO PRN (17:00)
[2024-07-10] MEDS ORDERED: MAGNESIUM SULFATE 4 GM/100 ML IVB IV ONE (17:00)
[2024-07-10] MEDS ORDERED: Dicyclomine Hydrochloride 20 MG TAB PO PRN (17:00)
[2024-07-10] MEDS ORDERED: METHOCARBAMOL 750 MG TAB PO PRN (17:00)
[2024-07-10] MEDS ORDERED: LORazepam 2 MG/ML VIAL IV PRN (17:00)
[2024-07-10] MEDS ORDERED: Albuterol Sulf/Ipratropium 3 ML VIAL NEB SCH (17:05)
[2024-07-10] MEDS ORDERED: SODIUM CHLORIDE 0.9% 1,000 ML IV ONE (17:35)
[2024-07-10] MEDS ORDERED: LORazepam 1 MG TAB PO SCH (18:00)
[2024-07-10] MEDS ORDERED: Nicotine 21 MG PATCH T SCH (18:00)
[2024-07-10 19:05] VITALS: BP 112/80
[2024-07-10 20:45] VITALS: BP 90/45; BP 92/45
[2024-07-10] MEDS ORDERED: Thiamine 200 MG/2 ML VIAL IV SCH (22:00)
[2024-07-10] MEDS ORDERED: Metoprolol Tartrate 25 MG TAB PO SCH (22:00)
[2024-07-11] VITALS: BP 113/66
[2024-07-11 05:42] LABS: BUN 15 mg/dl (9-23); CHLORIDE 106 mmol/L (98-107); POTASSIUM 4.1 mmol/L (3.4-5.1)
[2024-07-11 06:13] LABS: HEMATOCRIT 35.1 % (42.0-52.0); MEAN CELL VOLUME 102.9 fl (80.0-94.0); MEAN CORPUSCULAR HGB 32.6 pg (27.0-31.0); MEAN CORPUSCULAR HGB CONC 31.6 g/dl (33.0-37.0); MEAN PLATELET VOLUME 10.7 fl (9.6-12.3); PLATELET COUNT AUTOMATED 169 10*3/uL (130-400); RED BLOOD COUNT 3.41 10*6/uL (4.50-5.90); RED CELL DISTRI WIDTH 13.6 % (0-14.5); WHITE BLOOD COUNT 9.5 10*3/uL (4.8-10.8)
[2024-07-11 06:24] LABS: MANUAL DIFF REFLEX YES
[2024-07-11 06:55] LABS: TOTAL CELLS COUNTED 100 #CELLS
[2024-07-11 06:56] LABS: OVALOCYTES FEW; PLATELET SUFFICIENCY NORMAL (NORMAL); POLYCHROMASIA SLIGHT; TOXIC GRANULATION SLIGHT
[2024-07-11] MEDS ORDERED: Albuterol Sulf/Ipratropium 3 ML VIAL NEB SCH (07:45)
[2024-07-11 08:00] VITALS: BP 138/96
[2024-07-11] MEDS ORDERED: GUAIFENESIN 600 MG TAB ER PO SCH (10:00)
[2024-07-11] MEDS ORDERED: ASPIRIN ENTERIC COATED 81 MG TAB PO SCH (10:00)
[2024-07-11] MEDS ORDERED: MULTIVITAMIN 1 TAB TAB PO SCH (10:00)
[2024-07-11] MEDS ORDERED: LISINOPRIL 10 MG TAB PO SCH (10:00)
[2024-07-11] MEDS ORDERED: Enoxaparin Sodium 40 MG/0.4 ML SYR SC SCH (10:00)
[2024-07-11 12:00] VITALS: BP 132/90
[2024-07-11] MEDS ORDERED: CALCIUM (TUMS) 500MG PO PRN (14:40)
[2024-07-11 16:00] VITALS: BP 123/77
[2024-07-11 20:00] VITALS: BP 128/68
[2024-07-11] MEDS ORDERED: LORazepam 1 MG TAB PO SCH (20:00)
[2024-07-12] VITALS: BP 110/64
[2024-07-12] MEDS ORDERED: LORazepam 1 MG TAB PO PRN
[2024-07-12 05:35] LABS: BUN 19 mg/dl (9-23); CHLORIDE 101 mmol/L (98-107); POTASSIUM 4.4 mmol/L (3.4-5.1)
[2024-07-12 06:25] LABS: HEMATOCRIT 35.6 % (42.0-52.0); MEAN CELL VOLUME 101.1 fl (80.0-94.0); MEAN CORPUSCULAR HGB 32.4 pg (27.0-31.0); MEAN PLATELET VOLUME 10.7 fl (9.6-12.3); PLATELET COUNT AUTOMATED 183 10*3/uL (130-400); RED BLOOD COUNT 3.52 10*6/uL (4.50-5.90); RED CELL DISTRI WIDTH 13.2 % (0-14.5); WHITE BLOOD COUNT 9.9 10*3/uL (4.8-10.8)
[2024-07-12] MEDS ORDERED: Regadenoson 0.4 MG/5 ML SYR IV ONE (06:35)
[2024-07-12 07:04] LABS: MANUAL DIFF REFLEX YES
[2024-07-12 09:01] LABS: PLATELET SUFFICIENCY NORMAL (NORMAL); TOTAL CELLS COUNTED 100 #CELLS
[2024-07-12 12:00] VITALS: BP 122/88
[2024-07-12 16:00] VITALS: BP 91/67
[2024-07-12] MEDS ORDERED: BUDESONIDE 0.5 MG AMP NEB SCH (16:15)
[2024-07-12] MEDS ORDERED: Budesonide/Formoterol Fumarate 160/4.5 inhaler INH SCH (18:00)
[2024-07-12] MEDS ORDERED: buPROPion SR 100 MG TAB PO SCH (22:00)
[2024-07-13] MEDS ORDERED: Thiamine 100 MG TAB PO SCH (10:00)
[2024-07-13] MEDS ORDERED: FOLIC ACID 1 MG TAB PO SCH (10:00)
== END 2024-07-12 16:58 ==
LOC: ED 12:40 → 4E 16:15 → EDHOLD 16:15 → 4E 20:06
PROVIDERS: Emergency Medicine; Student in an Organized Health Care Education/Training Program; ADMIT Family Medicine; ATTEND Family Medicine
DX: R00.0 Tachycardia, unspecified (principal); R07.89 Other chest pain; D72.829 Elevated white blood cell count, unspecified; E87.20 Acidosis, unspecified; E87.1 Hypo-osmolality and hyponatremia; R74.01 Elevation of levels of liver transaminase levels; R73.9 Hyperglycemia, unspecified; J43.8 Other emphysema; E78.2 Mixed hyperlipidemia; I10 Essential (primary) hypertension; E55.9 Vitamin D deficiency, unspecified; F41.9 Anxiety disorder, unspecified; F10.10 Alcohol abuse, uncomplicated; G62.9 Polyneuropathy, unspecified; D53.9 Nutritional anemia, unspecified; R65.10 Systemic inflammatory response syndrome (SIRS) of non-infectious origin without acute organ dysfunction; Z79.899 Other long term (current) drug therapy

== ENCOUNTER → 2024-10-17 | Outpatient (CLI) | payer OTHER, MEDICAID | END | disposition home or self-care (01) | LOC: US 09:06 | PROVIDERS: ATTEND Nurse Practitioner Family | DX: R20.2 Paresthesia of skin (principal); M79.672 Pain in left foot; M79.671 Pain in right foot; E11.51 Type 2 diabetes mellitus with diabetic peripheral angiopathy without gangrene ==

== ENCOUNTER → 2024-12-17 | Outpatient (CLI) | payer OTHER, MEDICAID ==
[~2024-12-17] MED LIST changes: +MUCUS RELIEF E600 MG PO; +PANTOPRAZOLE SO40 MG PO; +TRAZODONE100 MG PO
== END | disposition home or self-care (01) ==
LOC: RAD 13:09
PROVIDERS: ATTEND Internal Medicine
DX: M51.46 Schmorl's nodes, lumbar region (principal); M54.50 Low back pain, unspecified

== ENCOUNTER 2025-02-18 00:09 | Inpatient (IN) | payer OTHER, MEDICAID ==
[~2025-02-18] VITALS: Ht 180.3 cm; Wt 69.7 kg
[2025-02-18] VITALS (7 sets, daily range): BP systolic 126–147; BP diastolic 77–85
[2025-02-18 00:38] LABS: MEAN CELL VOLUME 91.1 fl (80.0-94.0); MEAN CORPUSCULAR HGB 32.6 pg (27.0-31.0); MEAN PLATELET VOLUME 10.7 fl (9.6-12.3); NUCLEATED RED BLOOD CELL 0.0 % (0.0-0.0); NUCLEATED RED BLOOD CELL 0.0 10*3/uL (0.0-0.0); PLATELET COUNT AUTOMATED 81 10*3/uL (130-400); RED CELL DISTRI WIDTH 13.6 % (0-14.5)
[2025-02-18 00:56] LABS: MANUAL DIFF REFLEX YES
[2025-02-18 00:58] LABS: PLATELET SUFFICIENCY LOW (NORMAL)
[2025-02-18 01:03] LABS: BUN 10 mg/dl (9-23); ETHYL ALCOHOL 200.1 mg/dl (<3)
[2025-02-18] MEDS ORDERED: SODIUM CHLORIDE 0.9% 1,000 ML IV ONE (01:10)
[2025-02-18] MEDS ORDERED: diazePAM 10 MG/2 ML SYR IV ONE ×2 (05:00→06:00)
[2025-02-18] MEDS ORDERED: Albuterol Sulf/Ipratropium 3 ML VIAL NEB ONE (05:15)
[2025-02-18] MEDS ORDERED: AZITHROMYCIN 250 ML IV ONE (05:15)
[2025-02-18] MEDS ORDERED: Ondansetron Hydrochloride 4 MG/2 ML VIAL IV ONE (06:00)
[2025-02-18] MEDS ORDERED: Water, Sterile 10 ML VIAL IV PRN (06:45)
[2025-02-18] MEDS ORDERED: METHOCARBAMOL 750 MG TAB PO PRN (06:45)
[2025-02-18] MEDS ORDERED: MAGNESIUM SULFATE 100 ML IV ONE (06:45)
[2025-02-18] MEDS ORDERED: FOLIC ACID 1 MG TAB PO ONE (06:45)
[2025-02-18] MEDS ORDERED: hydrOXYzine 50 MG CAP PO PRN (06:45)
[2025-02-18] MEDS ORDERED: Dicyclomine Hydrochloride 20 MG TAB PO PRN (06:45)
[2025-02-18] MEDS ORDERED: Albuterol Sulf/Ipratropium 3 ML VIAL NEB SCH (06:50)
[2025-02-18 07:39] LABS: BASO # 0.0 10*3/uL (0.0-0.1); BASO % 0.3 % (0.0-1.0); EOS # 0.0 10*3/uL (0.0-0.4); EOS % 0.1 % (1.0-4.0); MEAN CELL VOLUME 92.2 fl (80.0-94.0); MEAN CORPUSCULAR HGB 32.4 pg (27.0-31.0); MEAN PLATELET VOLUME 10.3 fl (9.6-12.3); MONO # 0.3 10*3/uL (0.1-1.0); MONO % 3.5 % (3.0-9.0); NEUT # 6.6 10*3/uL (2.3-7.9); NEUT % 83.0 % (47.0-73.0); NUCLEATED RED BLOOD CELL 0.0 % (0.0-0.0); NUCLEATED RED BLOOD CELL 0.0 10*3/uL (0.0-0.0); PLATELET COUNT AUTOMATED 62 10*3/uL (130-400); RED CELL DISTRI WIDTH 13.5 % (0-14.5)
[2025-02-18 07:58] LABS: BUN 7 mg/dl (9-23)
[2025-02-18] MEDS ORDERED: LORazepam 1 MG TAB PO SCH (08:00)
[2025-02-18] MEDS ORDERED: Ondansetron Hydrochloride 4 MG TAB PO PRN (08:35)
[2025-02-18] MEDS ORDERED: DEXTROSE 5% 1,000 ML IV ONE ×2 (09:23→21:00)
[2025-02-18] MEDS ORDERED: GUAIFENESIN 600 MG TAB ER PO SCH (10:00)
[2025-02-18] MEDS ORDERED: MULTIVITAMIN 1 TAB TAB PO SCH (10:00)
[2025-02-18] MEDS ORDERED: diazePAM 10 MG/2 ML SYR IV PRN (12:25)
[2025-02-18 13:28] LABS: BUN 8 mg/dl (9-23)
[2025-02-18] MEDS ORDERED: DEXTROSE 5% 500 ML IV SCH (14:25)
[2025-02-18 20:35] LABS: BUN 10 mg/dl (9-23)
[2025-02-18] MEDS ORDERED: DEXTROSE 5% 500 ML IV PRN (21:10)
[2025-02-19] VITALS: BP 127/80
[2025-02-19 00:35] LABS: BUN 11 mg/dl (9-23)
[2025-02-19] MEDS ORDERED: CALCIUM (TUMS) 500MG PO ONE (03:40)
[2025-02-19 04:31] LABS: MANUAL DIFF REFLEX YES; MEAN CELL VOLUME 94.1 fl (80.0-94.0); MEAN CORPUSCULAR HGB 32.6 pg (27.0-31.0); MEAN PLATELET VOLUME 10.9 fl (9.6-12.3); NUCLEATED RED BLOOD CELL 0.0 % (0.0-0.0); NUCLEATED RED BLOOD CELL 0.0 10*3/uL (0.0-0.0); PLATELET COUNT AUTOMATED 63 10*3/uL (130-400); RED CELL DISTRI WIDTH 13.2 % (0-14.5)
[2025-02-19 04:54] LABS: BUN 12 mg/dl (9-23)
[2025-02-19 04:55] LABS: PLATELET SUFFICIENCY LOW (NORMAL)
[2025-02-19] MEDS ORDERED: AZITHROMYCIN 250 ML IV SCH (06:00)
[2025-02-19 08:00] VITALS: BP 126/78
[2025-02-19] MEDS ORDERED: CALCIUM (TUMS) 500MG PO PRN (08:30)
[2025-02-19 09:28] LABS: BUN 11 mg/dl (9-23)
[2025-02-19] MEDS ORDERED: LORazepam 1 MG TAB PO SCH ×2 (10:00)
[2025-02-19 12:00] VITALS: BP 146/88
[2025-02-19 13:37] LABS: BUN 14 mg/dl (9-23)
[2025-02-19 16:00] VITALS: BP 137/94
[2025-02-19 19:46] VITALS: BP 137/92
[2025-02-20] VITALS: BP 127/84
[2025-02-20] MEDS ORDERED: LORazepam 1 MG TAB PO PRN
[2025-02-20 04:00] VITALS: BP 135/78
[2025-02-20 05:22] LABS: BUN 11 mg/dl (9-23)
[2025-02-20 05:56] LABS: BASO # 0.0 10*3/uL (0.0-0.1); BASO % 0.0 % (0.0-1.0); EOS # 0.0 10*3/uL (0.0-0.4); EOS % 0.0 % (1.0-4.0); MEAN CELL VOLUME 96.1 fl (80.0-94.0); MEAN CORPUSCULAR HGB 32.6 pg (27.0-31.0); MEAN PLATELET VOLUME 11.5 fl (9.6-12.3); MONO # 0.4 10*3/uL (0.1-1.0); MONO % 5.3 % (3.0-9.0); NEUT # 5.7 10*3/uL (2.3-7.9); NEUT % 81.3 % (47.0-73.0); NUCLEATED RED BLOOD CELL 0.0 % (0.0-0.0); NUCLEATED RED BLOOD CELL 0.0 10*3/uL (0.0-0.0); PLATELET COUNT AUTOMATED 69 10*3/uL (130-400); RED CELL DISTRI WIDTH 13.3 % (0-14.5)
[2025-02-20 08:00] VITALS: BP 155/88
[2025-02-20] MEDS ORDERED: SODIUM CHLORIDE 0.9% 100 ML BAG IV ONE (09:50)
[2025-02-20] MEDS ORDERED: IOHEXOL 350 MG/ML 100 ML VIAL IV ONE (09:50)
[2025-02-20 12:00] VITALS: BP 155/90
[2025-02-20 16:00] VITALS: BP 147/84
[2025-02-20 20:00] VITALS: BP 148/84
[2025-02-20] MEDS ORDERED: GABAPENTIN 100 MG CAP PO SCH (22:45)
[2025-02-21] VITALS: BP 142/76
[2025-02-21 04:00] VITALS: BP 152/97
[2025-02-21 07:32] LABS: MEAN CELL VOLUME 97.1 fl (80.0-94.0); MEAN CORPUSCULAR HGB 32.1 pg (27.0-31.0); MEAN PLATELET VOLUME 10.9 fl (9.6-12.3); NUCLEATED RED BLOOD CELL 0.0 % (0.0-0.0); NUCLEATED RED BLOOD CELL 0.0 10*3/uL (0.0-0.0); PLATELET COUNT AUTOMATED 84 10*3/uL (130-400); RED CELL DISTRI WIDTH 13.4 % (0-14.5)
[2025-02-21 08:00] VITALS: BP 145/88
[2025-02-21 08:02] LABS: BUN 14 mg/dl (9-23)
[2025-02-21 08:26] LABS: MANUAL DIFF REFLEX YES
[2025-02-21 08:29] LABS: PLATELET SUFFICIENCY LOW (NORMAL)
[2025-02-21 12:00] VITALS: BP 151/97
[2025-02-21] MEDS ORDERED: GABAPENTIN 100 MG CAP PO SCH (14:00)
[2025-02-21 16:00] VITALS: BP 134/76
[2025-02-21 20:00] VITALS: BP 143/83
[2025-02-21] MEDS ORDERED: LORazepam 1 MG TAB PO PRN (22:00)
[2025-02-22] VITALS: BP 138/80
[2025-02-22 05:22] LABS: BUN 15 mg/dl (9-23)
[2025-02-22 06:21] LABS: MEAN CELL VOLUME 96.5 fl (80.0-94.0); MEAN CORPUSCULAR HGB 32.9 pg (27.0-31.0); MEAN PLATELET VOLUME 11.4 fl (9.6-12.3); NUCLEATED RED BLOOD CELL 0.0 % (0.0-0.0); NUCLEATED RED BLOOD CELL 0.0 10*3/uL (0.0-0.0); PLATELET COUNT AUTOMATED 108 10*3/uL (130-400); RED CELL DISTRI WIDTH 13.2 % (0-14.5)
[2025-02-22 07:12] LABS: MANUAL DIFF REFLEX YES
[2025-02-22 07:15] LABS: PLATELET SUFFICIENCY LOW (NORMAL)
[2025-02-22 08:00] VITALS: BP 142/89
[2025-02-22] MEDS ORDERED: Water, Sterile 10 ML VIAL ONE ×2 (10:11→16:49)
[2025-02-22 12:00] VITALS: BP 141/88
[2025-02-22 16:00] VITALS: BP 135/79
[2025-02-22 20:00] VITALS: BP 138/84
[2025-02-22] MEDS ORDERED: GABAPENTIN 100 MG CAP PO SCH (22:00)
[2025-02-22 23:30] VITALS: BP 156/101
[2025-02-23] VITALS: BP 137/77
[2025-02-23 05:58] LABS: MEAN CELL VOLUME 97.7 fl (80.0-94.0); MEAN CORPUSCULAR HGB 32.3 pg (27.0-31.0); MEAN PLATELET VOLUME 11.1 fl (9.6-12.3); NUCLEATED RED BLOOD CELL 0.0 % (0.0-0.0); NUCLEATED RED BLOOD CELL 0.0 10*3/uL (0.0-0.0); PLATELET COUNT AUTOMATED 133 10*3/uL (130-400); RED CELL DISTRI WIDTH 13.2 % (0-14.5)
[2025-02-23 06:33] LABS: MANUAL DIFF REFLEX YES
[2025-02-23 06:36] LABS: PLATELET SUFFICIENCY LOW (NORMAL)
[2025-02-23 06:38] LABS: BUN 20 mg/dl (9-23)
[2025-02-23 08:00] VITALS: BP 154/96
[2025-02-23] MEDS ORDERED: LISINOPRIL 10 MG TAB PO SCH (10:00)
[2025-02-23 12:00] VITALS: BP 136/82
[2025-02-23 16:00] VITALS: BP 132/85
[2025-02-23 20:00] VITALS: BP 132/56; BP 148/84
[2025-02-24 06:52] LABS: BASO # 0.0 10*3/uL (0.0-0.1); BASO % 0.3 % (0.0-1.0); EOS # 0.1 10*3/uL (0.0-0.4); EOS % 0.7 % (1.0-4.0); MEAN CELL VOLUME 98.3 fl (80.0-94.0); MEAN CORPUSCULAR HGB 31.9 pg (27.0-31.0); MEAN PLATELET VOLUME 10.9 fl (9.6-12.3); MONO # 1.0 10*3/uL (0.1-1.0); MONO % 8.9 % (3.0-9.0); NEUT # 7.1 10*3/uL (2.3-7.9); NEUT % 64.2 % (47.0-73.0); NUCLEATED RED BLOOD CELL 0.0 % (0.0-0.0); NUCLEATED RED BLOOD CELL 0.0 10*3/uL (0.0-0.0); PLATELET COUNT AUTOMATED 162 10*3/uL (130-400); RED CELL DISTRI WIDTH 13.5 % (0-14.5)
[2025-02-24 07:43] LABS: BUN 18 mg/dl (9-23)
[2025-02-24 08:00] VITALS: BP 139/88
[2025-02-24 12:00] VITALS: BP 130/79
[2025-02-24] MEDS ORDERED: METOPROLOL TART75 MG PO (13:12)
[2025-02-24] MEDS ORDERED: GABAPENTIN100 M2 PO (13:12)
== END 2025-02-24 13:51 | disposition home or self-care (01) | DRG 871 ==
LOC: ED 00:09 → EDHOLD 06:15 → ICCU 06:15 → EDHOLD 06:46 → ICCU 07:31 → 5E 02-23 14:40
PROVIDERS: Family Medicine; Internal Medicine; Internal Medicine Nephrology; Student in an Organized Health Care Education/Training Program; ADMIT Internal Medicine; ATTEND Internal Medicine
DX: A41.9 Sepsis, unspecified organism (principal); J69.0 Pneumonitis due to inhalation of food and vomit; J96.21 Acute and chronic respiratory failure with hypoxia; F10.939 Alcohol use, unspecified with withdrawal, unspecified; E87.1 Hypo-osmolality and hyponatremia; J44.1 Chronic obstructive pulmonary disease with (acute) exacerbation; E87.20 Acidosis, unspecified; F17.210 Nicotine dependence, cigarettes, uncomplicated; F10.929 Alcohol use, unspecified with intoxication, unspecified; D64.9 Anemia, unspecified; E87.8 Other disorders of electrolyte and fluid balance, not elsewhere classified; E78.5 Hyperlipidemia, unspecified; I10 Essential (primary) hypertension; F41.9 Anxiety disorder, unspecified; D69.6 Thrombocytopenia, unspecified; G62.9 Polyneuropathy, unspecified; R73.9 Hyperglycemia, unspecified; Z82.49 Family history of ischemic heart disease and other diseases of the circulatory system; Z79.899 Other long term (current) drug therapy

== ENCOUNTER 2025-04-10 07:53 | Inpatient (IN) | payer OTHER, MEDICAID ==
[~2025-04-10] VITALS: Wt 65.8 kg
[~2025-04-10 07:53] MED LIST changes: +GABAPENTIN100 M2 PO; +METOPROLOL TART75 MG PO
[2025-04-10 08:04] VITALS: BP 139/85
[2025-04-10] MEDS ORDERED: LORazepam 1 MG TAB PO ONE (08:05)
[2025-04-10] MEDS ORDERED: SODIUM CHLORIDE 0.9% 1,000 ML IV ONE ×2 (08:05→14:15)
[2025-04-10] MEDS ORDERED: Albuterol Sulf/Ipratropium 3 ML VIAL NEB ONE (08:05)
[2025-04-10 08:22] LABS: BASO # 0.0 10*3/uL (0.0-0.1); BASO % 0.4 % (0.0-1.0); EOS # 0.0 10*3/uL (0.0-0.4); EOS % 0.4 % (1.0-4.0); MEAN CELL VOLUME 96.7 fl (80.0-94.0); MEAN CORPUSCULAR HGB 32.7 pg (27.0-31.0); MEAN PLATELET VOLUME 10.6 fl (9.6-12.3); MONO # 0.5 10*3/uL (0.1-1.0); MONO % 11.7 % (3.0-9.0); NEUT # 2.9 10*3/uL (2.3-7.9); NEUT % 62.6 % (47.0-73.0); NUCLEATED RED BLOOD CELL 0.0 % (0.0-0.0); NUCLEATED RED BLOOD CELL 0.0 10*3/uL (0.0-0.0); PLATELET COUNT AUTOMATED 50 10*3/uL (130-400); RED CELL DISTRI WIDTH 13.4 % (0-14.5)
[2025-04-10 08:41] LABS: CPK 88 U/L (34-171); ETHYL ALCOHOL 249.5 mg/dl (<3)
[2025-04-10 08:43] LABS: BUN < 5 mg/dl (9-23)
[2025-04-10] MEDS ORDERED: diazePAM 10 MG/2 ML SYR IV ONE ×2 (11:20→17:20)
[2025-04-10] MEDS ORDERED: MAGNESIUM SULFATE 100 ML IV ONE (11:55)
[2025-04-10] MEDS ORDERED: hydrOXYzine 50 MG CAP PO PRN (11:55)
[2025-04-10] MEDS ORDERED: FOLIC ACID 1 MG TAB PO ONE (11:55)
[2025-04-10] MEDS ORDERED: METHOCARBAMOL 750 MG TAB PO PRN (11:55)
[2025-04-10] MEDS ORDERED: Dicyclomine Hydrochloride 20 MG TAB PO PRN (11:55)
[2025-04-10] MEDS ORDERED: MG-AL HYDROXIDE/SIMETICONE 30 ML UDC PO PRN (12:10)
[2025-04-10] MEDS ORDERED: Ondansetron Hydrochloride 4 MG/2 ML VIAL IV PRN (12:10)
[2025-04-10] MEDS ORDERED: BISACODYL 10 MG SUPP R PRN (12:10)
[2025-04-10] MEDS ORDERED: IBUPROFEN 600 MG TAB PO PRN (12:10)
[2025-04-10] MEDS ORDERED: ACETAMINOPHEN 500 MG TAB PO PRN (12:10)
[2025-04-10] MEDS ORDERED: Ondansetron Hydrochloride 4 MG TAB PO PRN (12:10)
[2025-04-10] MEDS ORDERED: diazePAM 10 MG/2 ML SYR IV PRN (12:20)
[2025-04-10] MEDS ORDERED: Albuterol Sulf/Ipratropium 3 ML VIAL NEB SCH (12:26)
[2025-04-10] MEDS ORDERED: AZITHROMYCIN 250 ML IV SCH (13:00)
[2025-04-10 13:03] LABS: BILIRUBIN Negative (Negative); BLOOD Negative (Negative); CLARITY Clear (Clear); COLOR Yellow (Yellow); KETONE Negative (Negative); LEUKO ESTERASE Negative (Negative); NITRITE Negative (Negative); PH 6.5 (4.5-8.0); SPECIFIC GRAVITY <= 1.005 (1.001-1.030); UROBILINOGEN 0.2 E.U./dl (0.0-1.0)
[2025-04-10 13:10] LABS: URINE AMPHETAMINES Negative (1000ng/ml); URINE BARBITURATES Negative (200ng/ml); URINE BENZODIAZEPINES Negative (200ng/ml); URINE CANNABINOIDS (THC) Negative (50ng/ml); URINE COCAINE Negative (300ng/ml); URINE METHADONE Negative (300ng/ml); URINE OPIATES Negative (300ng/ml); URINE PHENCYCLIDINE Negative (25ng/ml)
[2025-04-10 13:33] LABS: RBC 0-2 rbc/hpf (0-2); WBC 0-2 wbc/hpf (0-5)
[2025-04-10 14:33] VITALS: BP 139/82
[2025-04-10 16:00] VITALS: BP 139/85
[2025-04-10] MEDS ORDERED: SODIUM CHLORIDE 0.9% 500 ML IV ONE (17:30)
[2025-04-10 18:40] VITALS: BP 146/86
[2025-04-10 20:00] VITALS: BP 158/81
[2025-04-10] MEDS ORDERED: GABAPENTIN 100 MG CAP PO SCH (22:00)
[2025-04-11] VITALS: BP 138/94
[2025-04-11 00:57] VITALS: BP 147/86
[2025-04-11 07:32] LABS: MEAN CELL VOLUME 97.3 fl (80.0-94.0); MEAN CORPUSCULAR HGB 33.0 pg (27.0-31.0); MEAN PLATELET VOLUME 12.1 fl (9.6-12.3); NUCLEATED RED BLOOD CELL 0.0 % (0.0-0.0); NUCLEATED RED BLOOD CELL 0.0 10*3/uL (0.0-0.0); PLATELET COUNT AUTOMATED 42 10*3/uL (130-400); RED CELL DISTRI WIDTH 13.4 % (0-14.5)
[2025-04-11 07:33] LABS: BUN 7 mg/dl (9-23); SGPT/ALT 62 U/L (5-49)
[2025-04-11 07:47] LABS: MANUAL DIFF REFLEX YES
[2025-04-11 07:54] LABS: PLATELET SUFFICIENCY LOW (NORMAL)
[2025-04-11 08:00] VITALS: BP 123/90
[2025-04-11] MEDS ORDERED: Cholecalciferol 5,000 IU CAP (125 MCG) PO SCH (10:00)
[2025-04-11] MEDS ORDERED: MULTIVITAMIN 1 TAB TAB PO SCH ×2 (10:00)
[2025-04-11] MEDS ORDERED: LISINOPRIL 10 MG TAB PO SCH (10:00)
[2025-04-11] MEDS ORDERED: FOLIC ACID 1 MG TAB PO SCH (10:00)
[2025-04-11] MEDS ORDERED: Thiamine 100 MG TAB PO SCH (10:00)
[2025-04-11 12:00] VITALS: BP 130/82
[2025-04-11 16:00] VITALS: BP 106/69
[2025-04-11 20:00] VITALS: BP 130/85
[2025-04-12] VITALS: BP 154/88
[2025-04-12 08:00] VITALS: BP 137/81
[2025-04-12 16:00] VITALS: BP 139/77
[2025-04-12 20:00] VITALS: BP 125/83
[2025-04-13] VITALS: BP 155/87
[2025-04-13 08:00] VITALS: BP 159/99
[2025-04-13 12:00] VITALS: BP 155/94
[2025-04-13] MEDS ORDERED: diazePAM 10 MG/2 ML SYR IV ONE (15:35)
[2025-04-13 16:00] VITALS: BP 161/89
[2025-04-13 20:00] VITALS: BP 144/81
[2025-04-14 00:01] VITALS: BP 170/93
[2025-04-14] MEDS ORDERED: diazePAM 10 MG/2 ML SYR IV PRN (00:05)
[2025-04-14 08:00] VITALS: BP 149/92
[2025-04-14 12:00] VITALS: BP 145/95
== END 2025-04-14 14:33 | disposition left against medical advice (07) | DRG 191 ==
LOC: ED 07:53 → EDHOLD 11:22 → 5E 11:22
PROVIDERS: Emergency Medicine; Registered Nurse; ADMIT Internal Medicine; ATTEND Internal Medicine
DX: J44.1 Chronic obstructive pulmonary disease with (acute) exacerbation (principal); D61.818 Other pancytopenia; E44.0 Moderate protein-calorie malnutrition; F10.139 Alcohol abuse with withdrawal, unspecified; Z68.45 Body mass index [BMI] 70 or greater, adult; F41.9 Anxiety disorder, unspecified; Z53.29 Procedure and treatment not carried out because of patient's decision for other reasons; E78.5 Hyperlipidemia, unspecified; I10 Essential (primary) hypertension; G62.9 Polyneuropathy, unspecified; F10.129 Alcohol abuse with intoxication, unspecified; F17.210 Nicotine dependence, cigarettes, uncomplicated; R74.01 Elevation of levels of liver transaminase levels; Z79.899 Other long term (current) drug therapy; Z82.49 Family history of ischemic heart disease and other diseases of the circulatory system; Z78.9 Other specified health status; Z79.01 Long term (current) use of anticoagulants; Z79.2 Long term (current) use of antibiotics; Y90.0 Blood alcohol level of less than 20 mg/100 ml